=== PATIENT | female | born 1965 | race Hispanic/Latino ===

== ENCOUNTER 2016-11-20 14:37 | Inpatient (IN) | payer MEDICARE, MEDICAID, OTHER ==
[2016-11-20 14:52] VITALS: BMI 22.1
--- NOTE | 2016-11-20 15:29 | ED PDOC ---
Arrival/HPI - General Chief Complaint: Psychiatric Evaluation Time Seen by Provider: 11/20/16 15:03 Historian: Patient - History of Present Illness Narrative History of Present Illness (Text): 11/20/16 15:22 51 yo F with past medical history of hypertension, papillary carcinoma of the thyroid, status post thyroidectomy one year ago, presents for psychiatric evaluation after seeing her psychiatrist today Dr. Amin, who recommends the patient come to the emergency room for inpatient psychiatric treatment. Patient reports several month history of feelings of anxiety and depression ever since she completed radioactive treatment for her thyroid cancer and menopause. Reports difficulty eating, sleeping and dealing with daily everyday stress. Patient states that her psychiatrist has recently changed her medication Zoloft a few days ago with no improvement of her current symptoms. Other psychiatric symptoms: (-) hallucinations, (-) suicidal ideation, (-) homicidal ideation. Otherwise: (-) trauma, (-) fever, (-) headache, (-) dyspnea, (-) vomiting, (-) substance abuse, (-) patient intent of initiating a suicide attempt, (-) plan. JOSUÉ Oakes Past Medical History - Provider Review Nursing Documentation Reviewed: Yes - Infectious Disease Hx of Infectious Diseases: None - Cardiac Hx Hypertension: Yes - Pulmonary Hx Tuberculosis: No - Neurological HX Cerebrovascular Accident: No Hx Seizures: No - HEENT Hx HEENT Disorder: No - Renal Hx Renal Disorder: No - Endocrine/Metabolic Hx Hypothyroidism: Yes (s/p thyroidectomy) - Hematological/Oncological Hx Cancer: No - Integumentary Hx Dermatological Disorder: No - Musculoskeletal/Rheumatological Hx Musculoskeletal Disorders: No - Gastrointestinal Hx Gastrointestinal Disorders: Yes - Genitourinary/Gynecological Hx Sexually Transmitted Diseases: No - Psychiatric Hx Anxiety: Yes Hx Depression: Yes Hx Emotional Abuse: No Hx Physical Abuse: No Hx Substance Use: No - Surgical History Hx Appendectomy: Yes Hx Thyroidectomy: Yes - Anesthesia Hx Anesthesia: Yes Hx Anesthesia Reactions: No Hx Malignant Hyperthermia: No - Suicidal Assessment Feels Threatened In Home Enviroment: No Family/Social History - Physician Review Nursing Documentation Reviewed: Yes Family/Social History: Neoplasm/Cancer Smoking Status: Never Smoked Hx Alcohol Use: No Hx Substance Use: No Allergies/Home Meds Allergies/Adverse Reactions: Allergies sulfamethoxazole [From Bactrim] Allergy (Verified 04/19/15 16:13) RASH trimethoprim [From Bactrim] Allergy (Verified 04/19/15 16:13) RASH Home Medications: Home Meds Medication Instructions Recorded Confirmed Dolutegravir Sodium [Tivicay] 50 mg PO DAILY 06/18/15 11/20/16 Metoprolol Succinate 25 mg PO DAILY 06/18/15 11/20/16 Emtricitabine/Tenofov Alafenam 1 each PO DAILY 06/09/16 11/20/16 [Descovy 200-25 mg Tablet] Levothyroxine [Synthroid] 137 mcg PO DAILY 06/09/16 11/20/16 Methylphenidate [Ritalin] 1 tab PO DAILY 11/20/16 11/20/16 Sertraline [Zoloft] 1 tab PO DAILY 11/20/16 11/20/16 Review of Systems - Review of Systems Constitutional: Normal. absent: Fatigue, Weight Change, Fevers Respiratory: Normal. absent: SOB, Cough, Sputum Cardiovascular: Normal. absent: Chest Pain, Palpitations, Edema Gastrointestinal: Normal. absent: Abdominal Pain, Vomiting, Appetite Changes Musculoskeletal: Normal. absent: Arthralgias, Back Pain, Neck Pain Skin: Normal. absent: Rash, Pruritis, Skin Lesions Neurological: Normal, Headache. absent: Dizziness, Focal Weakness Psychiatric: Normal, Anxiety, Depression. absent: Suicidal Ideation Physical Exam - Physical Exam Narrative Physical Exam (Text): 11/20/16 15:32 GENERAL APPEARANCE: Patient is awake, alert, oriented x 3, in no acute distress. SKIN: Warm, dry; (-) cyanosis. HEAD: (-) scalp swelling, (-) scalp tenderness. EYES: (-) conjunctival pallor, (-) scleral icterus, (-) nystagmus. ENMT: Mucous membranes moist. Airway patent: (-) stridor. NECK: (-) tenderness, (-) stiffness, (-) lymphadenopathy. CHEST AND RESPIRATORY: (-) rales, (-) rhonchi, (-) wheezes; breath sounds equal. ABDOMEN: Soft, (-) distention, (-) tenderness, (-) guarding. NEURO AND PSYCH: Mental status as above. Affect: flat. Memory: Intact. Mood: depressed. spanish moss picker: Pupils equal and reactive; EOMI; (-) facial asymmetry; tongue and uvula midline. Strength and DTRs symmetric. Vital Signs Pulse Resp BP Pulse Ox 11/20/16 18:00 72 18 120/80 97 Medical Decision Making ED Course and Treatment: 11/20/16 15:30 51 yo F with past medical history of hypertension, papillary carcinoma of the thyroid, status post thyroidectomy one year ago, presents for psychiatric evaluation, she reports several month history of feelings of anxiety and depression ever since she completed radioactive treatment for her thyroid cancer and menopause. Patient was referred by Dr. Amin, for inpatient psychiatric treatment. Plan: -- Labs -- Etoh / drug screen -- Urinalysis -- EKG -- CXR -- Reassess and disposition -- PES evaluation Case d/w Dr. Santos, request that the patient be assessed by PES, and recommends to have the patient offered voluntary inpatient psych treatment. Patient being evaluated by PES. After PES evaluation, patient agrees to voluntary inpatient psych admission. EKG: NSR at 87 bpm, (-) acute ST changes, as read by NICK. CXR : NAD, as read by PA Labs reviewed, patient noted to have a UTI, will treat with macrobid. Patient is medically cleared for inpatient psychiatric treatment. - Lab Interpretations I have reviewed the lab results: Yes (Urinalysis : +UTI. Macrobid 100 mg PO ordered.) - RAD Interpretation Radiology Orders: 11/20/16 15:35 CHEST PORTABLE [RAD] Stat - Medication Orders Current Medication Orders: Nitrofurantoin Macrocrystals (Macrobid) 100 mg PO Q12 BRYANNA Stop: 11/21/16 23:59 - PA / ACCESSIBILITY LIFT TECHNICIAN / Resident Statement MD/DO has reviewed & agrees with the documentation as recorded. Disposition/Present on Arrival - Present on Arrival Any Indicators Present on Arrival: No History of DVT/PE: No History of Uncontrolled Diabetes: No Urinary Catheter: No History of Decub. Ulcer: No History Surgical Site Infection Following: None - Disposition Have Diagnosis and Disposition been Completed?: Yes Diagnosis: Depression, Anxiety, UTI (urinary tract infection) Disposition: HOSPITALIZED Disposition Time: 16:00 Patient Plan: Admission Patient Problems: Current Active Problems Problem Status Onset Anxiety Acute Depression Acute UTI (urinary tract infection) Acute Condition: STABLE
[2016-11-20 16:43] LABS: BASO # 0.01 K/mm3 (0.0-2.0); BASO % 0.1 % (0.0-3.0); EOS % 0.1 % (1.5-5.0); GRAN # 4.52 (1.4-6.5); GRAN % 63.3 % (50.0-68.0); HEMATOCRIT 34.4 % (36.0-48.0); LYMPH # 1.9 (1.2-3.4); LYMPH % 26.8 % (22.0-35.0); MEAN CORPUSCULAR HEMOGLOBIN 32.8 pg (25.0-35.0); MONO # 0.7 (0.1-0.6); MONO % 9.7 % (1.0-6.0); PH,URINE 7.5 (4.7-8.0); RED CELL DISTRIBUTION WIDTH 13.7 % (11.5-14.5); URINE BILIRUBIN NEGATIVE (NEGATIVE); URINE BLOOD TRACE-INTACT (NEGATIVE); URINE GLUCOSE (UA) NEGATIVE (NEGATIVE); URINE KETONE NEGATIVE (NEGATIVE); URINE LEUKOCYTE ESTERASE LARGE Leu/uL (NEGATIVE); URINE PROTEIN 30 mg/dL (<30 mg/dL); URINE UROBILINOGEN 0.2 E.U./dL (<1 E.U./dL); WHITE BLOOD COUNT 7.1 10^3/ul (4.5-11.0)
[2016-11-20 16:46] LABS: URINE COLOR YELLOW (YELLOW)
[2016-11-20 16:47] LABS: URINE APPEARANCE CLEAR (CLEAR)
[2016-11-20 16:50] LABS: URINE WBC 25 - 30 /hpf (0-6)
[2016-11-20 16:51] LABS: URINE BACTERIA MANY (NEG)
[2016-11-20 16:52] LABS: URINE AMORPHOUS SEDIMENT FEW
[2016-11-20 17:14] LABS: ALB/GLOB RATIO 1.7 (1.1-1.8); ALKALINE PHOSPHATASE 63 U/L (38-126); ALT/SGPT 28 U/L (7-56); AST/SGOT 31 U/L (14-36); BILIRUBIN,TOTAL 0.8 mg/dL (0.2-1.3); BLOOD UREA NITROGEN 18 mg/dL (7-21); CALCIUM 9.6 mg/dL (8.4-10.5); CARBON DIOXIDE 28 mmol/L (21-33); CHLORIDE 101 mmol/L (98-107); GFR AFRICAN-AMERICAN > 60; GLUCOSE,RANDOM 90 mg/dL (70-110); POTASSIUM 3.5 mmol/L (3.6-5.0); SODIUM 139 mmol/L (132-148); TOTAL PROTEIN 6.8 g/dL (5.8-8.3)
[2016-11-20] MEDS ORDERED: Alum-Mag Hydrox-Simethicone Susp (30 mL) PO PRN (21:09)
[2016-11-20] MEDS ORDERED: Magnesium Hydroxide Susp 30 ml UD PO PRN (21:09)
[2016-11-20] MEDS ORDERED: Emtricitabine-Tenofovir 200 mg-300 mg Tab PO SCH (22:00)
--- NOTE | 2016-11-21 00:18 | PCM.BM ---
<Umberto Parra - Last Filed: 11/21/16 00:15> Treatment Plan Problems - Problems identified on initial assessmt Anxiety Date Initiated: 11/21/16 Time Initiated: 00:16 Assessment reference: NA Status: Active Hopelessness/Helplessness Date Initiated: 11/21/16 Time Initiated: 00:16 Assessment reference: NA Status: Active Feelings of Worthlessness Date Initiated: 11/21/16 Time Initiated: 00:17 Assessment reference: NA Status: Active Social Isolation Date Initiated: 11/21/16 Time Initiated: 00:17 Assessment reference: NA Status: Active Altered Sleep Patterns Date Initiated: 11/21/16 Time Initiated: 00:17 Assessment reference: NA Status: Active Treatment assets and liabiliti Patient Assests: cooperative, ADL independent, cognitively intact Patient Liabilities: live alone, poor support system, medical problems - Milieu Protocol Maintain good personal hygiene: daily Encourage regular showers, daily Remind patient to perform daily oral care, daily Assist patient to perform ADL's Maintain personal safety: every shift Educate patient to report safety concerns to staff, every shift Monitor environment for contraband/sharps Medication safety: Monitor for expected outcome, potential side effects: every shift, Assess barriers to learning: every shift, Assess readiness for medication education: every shift Discharge/Continuing Care - Education Needs Education Needs: Patient Medication, Patient Diagnosis/Disease Process, Patient Coping Skills, Patient Community resources, Patient Nutrition, Patient Health Practices/Safety, Patient Aftercare Safety Plan - Discharge Discharge Criteria: Tolerates medication w/o severe side effects, Free of Suicidal thoughts, Free of paranoid thoughts, Normal sleep pattern, Ability to care for self <Lew Pritchard - Last Filed: 11/23/16 11:13> Family Contact - Goals for Treatment Patient goals for treatment: "I want to stablize on medications" Discharge/Continuing Care - Discharge Discharge to:: Home <Hannah Lara - Last Filed: 11/23/16 16:19>
[2016-11-21 07:34] LABS: BASO # 0.02 K/mm3 (0.0-2.0); BASO % 0.4 % (0.0-3.0); EOS % 0.7 % (1.5-5.0); GRAN # 2.33 (1.4-6.5); GRAN % 51.5 % (50.0-68.0); HEMATOCRIT 34.2 % (36.0-48.0); LYMPH # 1.6 (1.2-3.4); LYMPH % 34.2 % (22.0-35.0); MEAN CORPUSCULAR HEMOGLOBIN 32.4 pg (25.0-35.0); MEAN CORPUSCULAR HGB CONC 35.7 g/dl (31.0-37.0); MEAN PLATELET VOLUME 9.1 fl (7.0-11.0); MONO # 0.6 (0.1-0.6); MONO % 13.2 % (1.0-6.0); RED CELL DISTRIBUTION WIDTH 13.8 % (11.5-14.5); WHITE BLOOD COUNT 4.5 10^3/ul (4.5-11.0)
[2016-11-21 07:58] LABS: ALB/GLOB RATIO 1.8 (1.1-1.8); ALKALINE PHOSPHATASE 63 U/L (38-126); ALT/SGPT 35 U/L (7-56); AST/SGOT 31 U/L (14-36); BILIRUBIN,TOTAL 1.3 mg/dL (0.2-1.3); BLOOD UREA NITROGEN 15 mg/dL (7-21); CALCIUM 9.4 mg/dL (8.4-10.5); CARBON DIOXIDE 27 mmol/L (21-33); CHLORIDE 102 mmol/L (98-107); CHOLESTEROL 157 mg/dL (130-200); GFR AFRICAN-AMERICAN > 60; GLUCOSE,FASTING 104 mg/dL (65-110); GLUCOSE,RANDOM 104 mg/dL (70-110); POTASSIUM 3.4 mmol/L (3.6-5.0); SODIUM 140 mmol/L (132-148); TOTAL PROTEIN 6.9 g/dL (5.8-8.3)
[2016-11-21 08:09] LABS: FREE T4 1.67 ng/dL (0.78-2.19)
[2016-11-21 08:23] LABS: THYROID STIMULATING HORMONE 3.25 mIU/mL (0.46-4.68)
--- NOTE | 2016-11-21 08:55 | PCM.PSYCH ---
Initial Psychiatric Evaluation - Initial Psychiatric Evaluation Type of Admission: Voluntary Legal Status: Capacity History of Present Illness and Precipitating Events: Patient is a single 51 yo white female with psychiatric history of depression and anxiety, no prior psychiatric admissions, no SA, in outpatient treatment with Dr. Amin since June 2016, compliant with prescribed Zoloft and Ritalin who was referred for psychiatric admission by Dr. Amin after she presented for office visit today reporting continued depression and hopelessness s/p medication switch from remeron and rexulti to zoloft and ritalin a week ago. Patient has a long history of depression however symptoms worsened after completing treatment for thyroid cancer. Patient had thyroidectomy in August 2015 and radioactive iodine treatment in November 2015. Since then she has noticed increase in anhedonia, low energy, poor motivation, insomnia and hopelessness. Presently she denies any suicidal thoughts and has been tolerating medications though noted that she takes Zoloft at night not during the day. She has been in control and there were no behavioral issues overnight. PSYCHIATRIC HISTORY No prior psychiatric admissions. No history of SA Outpatient tx with psychiatrist Dr. Amin since June 2016. Was prescribed remeron and rexulti which were switched to Ritalin and Zoloft a week ago. SOCIAL HISTORY Born and raised in [place]. She is not and lives by herself. She has a 29-year-old son. Unemployed. Denies tobacco/ETOH/substance abuse. Current Medications: Active Medications Generic Name Dose Route Start Last Admin Trade Name Freq PRN Reason Stop Dose Admin Acetaminophen 650 mg 11/20/16 21:09 Tylenol 325mg Tab PO Q4 PRN Pain, Mild (1-3) Al Hydrox/Mg Hydrox/Simethicone 30 ml 11/20/16 21:09 Maalox Plus 30 Ml PO DAILY PRN Upset Stomach Levothyroxine Sodium 25 mcg/ 137 mcg 11/21/16 06:00 Levothyroxine Sodium 112 mcg PO 0600 BRYANNA Lorazepam 0.5 mg 11/20/16 21:24 Ativan PO TID PRN Anxiety Protocol Magnesium Hydroxide 30 ml 11/20/16 21:09 Milk Of Magnesia PO DAILY PRN Constipation Metoprolol Tartrate 25 mg 11/21/16 08:00 Lopressor PO BID BRYANNA Nitrofurantoin Macrocrystals 100 mg 11/20/16 19:21 11/20/16 22:02 Macrobid PO 11/21/16 23:59 100 mg Q12 BRYANNA Administration Sertraline HCl 75 mg 11/21/16 08:00 Zoloft PO DAILY BRYANNA Trazodone HCl 50 mg 11/20/16 22:00 11/20/16 22:02 Desyrel PO 50 mg HS BRYANNA Administration Zaleplon 5 mg 11/20/16 21:24 11/20/16 23:34 Sonata PO 5 mg HS PRN Administration Insomnia Past Psychiatric History - Past Psychiatric History Pertinent Medical Hx (Current Medical&Sleep Prob, Allergies): Allergies Allergy/AdvReac Type Severity Reaction Status Date / Time sulfamethoxazole Allergy RASH Verified 11/20/16 20:57 [From Bactrim] trimethoprim [From Bactrim] Allergy RASH Verified 11/20/16 20:57 Dolutegravir Sodium [Tivicay] 50 mg PO DAILY 06/18/15 Metoprolol Succinate 25 mg PO DAILY 06/18/15 Emtricitabine/Tenofov Alafenam [Descovy 200-25 mg Tablet] 1 each PO DAILY Levothyroxine [Synthroid] 137 mcg PO DAILY 06/09/16 Methylphenidate [Ritalin] 1 tab PO DAILY 11/20/16 Sertraline [Zoloft] 1 tab PO DAILY 11/20/16 Mental Status Examination - Personal Presentation Personal Presentation: Looks stated age - Affect Affect: Constricted - Motor Activity Motor Activity: Calm - Reliability in Providing Information Reliability in Providing Information: Fair - Speech Speech: Organized, Coherent - Mood Mood: Depressed, Anxious - Formal Thought Process Formal Thought Process: No Impairment - Obsessions/Compulsions Obsessions: No Compulsions: No - Cognitive Functions Orientation: Person, Place, Situation Sensorium: Alert Attention/Concentration: Attentive Estimate of Intelligence: Average - Risk Risk: Diminished functioning DSM 5 DX - DSM 5 DSM 5 Diagnosis: Major Depression, Severe KRUPA r/o contribution of depression secondary to [facility] - Recommended/Plan of Treatment Treatment Recommendations and Plan of Treatment: * Group, milieu and supportive tx * zoloft 75 mg po hs for depression and anxiety * Trazodone 50 mg HS for depression and off-label for insomnia * Sonata 5 mg HS for insomnia * Ativan 0.5 mg po TID for anxiety * Awaiting medical consult * Vital signs reviewed and noted below: Selected Entries 11/20/16 11/20/16 18:00 22:02 Pulse Rate 72 95 H Respiratory 18 Rate Blood Pressure 120/80 146/92 H O2 Sat by Pulse 97 Oximetry ER LABS AND STUDIES EKG: NSR at 87 bpm, (-) acute ST changes, as read by NICK. CXR : NAD, as read by NICK 11/20/16 16:38 11/20/16 16:38 Lab Results 11/20/16 16:38: Alcohol, Quantitative < 10 11/20/16 16:38: Urine Opiates Screen Negative, Urine Methadone Screen Negative, Ur Barbiturates Screen Negative, Ur Phencyclidine Scrn Negative, Ur Amphetamines Screen Negative, U Benzodiazepines Scrn Negative, U Oth Cocaine Metabols Negative, U Cannabinoids Screen Negative 11/20/16 16:38: Sodium 139, Potassium 3.5 L, Chloride 101, Carbon Dioxide 28, Anion Gap 14, BUN 18, Creatinine 1.0, Est GFR ( Amer) > 60, Est GFR (Non- Af Amer) 58, Random Glucose 90, Calcium 9.6, Total Bilirubin 0.8, AST 31, ALT 28 , Alkaline Phosphatase 63, Total Protein 6.8, Albumin 4.3, Globulin 2.5, Albumin /Globulin Ratio 1.7 11/20/16 16:38: Urine Color Yellow, Urine Appearance Clear, Urine pH 7.5, Ur Specific [place] 1.015, Urine Protein 30 H, Urine Glucose (UA) Negative, Urine Ketones Negative, Urine Blood Trace-intact H, Urine Nitrate Negative, Urine Bilirubin Negative, Urine Urobilinogen 0.2, Ur Leukocyte Esterase Large H, Urine RBC 2 - 5, Urine WBC 25 - 30, Ur Epithelial Cells 6 - 8, Amorphous Sediment Few, Urine Bacteria Many, Urine Other Uyeast 11/20/16 16:38: WBC 7.1, RBC 3.78, Hgb 12.4, Hct 34.4 L, MCV 91.0, MCH 32.8, MCHC 36.0, RDW 13.7, Plt Count 195, MPV 9.0, Gran % 63.3, Lymph % (Auto) 26.8, [place] % (Auto) 9.7 H, Eos % (Auto) 0.1 L, Baso % (Auto) 0.1, Gran # 4.52, Lymph # 1.9, [place] # 0.7 H, Eos # 0.0, Baso # 0.01 FLOOR LABS Laboratory Results - last 24 hr 11/21/16 11/21/16 11/21/16 07:20 07:20 07:20 WBC 4.5 D RBC 3.76 Hgb 12.2 Hct 34.2 L MCV 91.0 MCH 32.4 MCHC 35.7 RDW 13.8 Plt Count 191 MPV 9.1 Gran % 51.5 Lymph % (Auto) 34.2 [place] % (Auto) 13.2 H Eos % (Auto) 0.7 L Baso % (Auto) 0.4 Gran # 2.33 Lymph # 1.6 [place] # 0.6 Eos # 0.0 Baso # 0.02 Sodium 140 Potassium 3.4 L Chloride 102 Carbon Dioxide 27 Anion Gap 14 BUN 15 Creatinine 1.0 Est GFR ( Amer) > 60 Est GFR (Non-Af Amer) 58 Random Glucose 104 Fasting Glucose 104 Calcium 9.4 Total Bilirubin 1.3 AST 31 ALT 35 Alkaline Phosphatase 63 Total Protein 6.9 Albumin 4.4 Globulin 2.5 Albumin/Globulin Ratio 1.8 Triglycerides 75 Cholesterol 157 LDL Cholesterol Direct 80 HDL Cholesterol 55 Free T4 TSH 3rd Generation RPR Nonreactive 11/21/16 07:20 WBC RBC Hgb Hct MCV MCH MCHC RDW Plt Count MPV Gran % Lymph % (Auto) [place] % (Auto) Eos % (Auto) Baso % (Auto) Gran # Lymph # [place] # Eos # Baso # Sodium Potassium Chloride Carbon Dioxide Anion Gap BUN Creatinine Est GFR ( Amer) Est GFR (Non-Af Amer) Random Glucose Fasting Glucose Calcium Total Bilirubin AST ALT Alkaline Phosphatase Total Protein Albumin Globulin Albumin/Globulin Ratio Triglycerides Cholesterol LDL Cholesterol Direct HDL Cholesterol Free T4 1.67 TSH 3rd Generation 3.25 RPR - Smoking Cessation Smoking Cessation Initiated: No Reason for not providing: Patient denies tobacco use
[2016-11-21] MEDS ORDERED: TIVICAY 50 MG PO ONE (16:15)
--- NOTE | 2016-11-21 19:34 | CARD ---
APPROVED REPORT EKG Measurement Heart [id number] <Conclusion> Normal sinus rhythm Possible Left atrial enlargement Incomplete right bundle branch block Cannot rule out Inferior infarct, age undetermined T wave abnormality, consider anterior ischemia Abnormal ECG
--- NOTE | 2016-11-22 05:15 | CON ---
DATE: CHIEF COMPLAINT: Hypertension, HIV positive. HISTORY OF PRESENT ILLNESS: Ms. Mulligan is 51 years old female with past medical history of hypertension, papillary carcinoma of the thyroid, status post thyroidectomy one year ago, came to the psychiatric evaluation after seeing her psychiatrist on the day of admission, Dr. Montano, who recommended the patient come to emergency room for inpatient psychiatric treatment. Actually, according to the patient several months ago, she got radiation therapy for her thyroid cancer and has menopause, started feeling anxious, depressed and having trouble dealing everyday stresses. She went to see her psychiatrist, Dr. Montano, he put her on Zoloft, but Zoloft was not helping. Then, after failing outpatient treatment, Dr. Montano sent the patient to [facility] for inpatient treatment. The patient do not have any suicidal or homicidal ideation and no hallucination or substance abuse. PAST MEDICAL HISTORY: Hypertension, papillary carcinoma of the thyroid status post thyroidectomy, status post radiation therapy, HIV positive. As per the patient, GERD, dyspepsia, anxiety, depression, appendectomy and thyroidectomy. FAMILY HISTORY: History of neoplasm/cancer. Smoking; never smoked. No drug, no ethanol. ALLERGIES: THE PATIENT IS ALLERGIC WITH BACTRIM. HOME MEDICATIONS: Tivicay, metoprolol, Descovy, levothyroxine, Ritalin and Zoloft. REVIEW OF SYSTEMS: The patient is seen and examined on the bedside in the psychiatric department, looks anxious, worrying about her HIV medication because hospital was not carrying. Length of time discussion done with the patient and told her that she can bring home medication or we will call ID to get substitution of the HIV medication. No nausea, vomiting, or diarrhea. No hematuria or hematochezia, no swelling of the leg, no chest pain, no palpitation, no headache, no dizziness. PHYSICAL EXAMINATION VITAL SIGNS: Temperature 98.6, pulse 78, blood pressure 144/88 and respiratory rate 18. HEENT: Head is normocephalic and atraumatic. Eyes, PERRLA. Extraocular muscles intact. Conjunctivae clear. Nose patent. Mucous membranes moist. NECK: Supple. No carotid bruits, JVD, or thyromegaly. CHEST: Bilateral symmetrical. HEART: S1 and S2 positive. LUNGS: Clear to auscultation. ABDOMEN: Soft. Bowel sounds are present. No organomegaly. EXTREMITIES: No edema. No cyanosis. NEUROLOGIC: The patient is awake and alert. Moving all 4 extremities. No focal deficits. LABORATORY DATA: White blood cell is 4.5, hemoglobin 12.2, hematocrit 34.2 and platelets 191. Sodium 140, potassium 3.4, BUN 15 and creatinine 1. TSH 3.25. ASSESSMENT AND PLAN: Ms. Ese Luo is 51 years old lady with hypokalemia we will replace, proteinuria, hematuria, urinary tract infection. Drug screening negative. Serology RPR nonreactive, history of hypertension, human immunodeficiency virus positive, thyroid cancer status post thyroidectomy and radiation therapy, has depression and anxiety, admitted in [facility]. No prior psychiatric admissions. Failed outpatient treatment by Dr. Montano. Ordered the patient's human immunodeficiency virus medications. Gastrointestinal and deep venous thrombosis prophylaxis. We will call infectious disease consult to justify above dictated medications and urinary tract infection. Repeat labs. We will follow up. Maryuri Oliveira MD
[2016-11-22 06:56] VITALS: O2SAT 98
--- NOTE | 2016-11-22 09:04 | PCM.PYCHPN ---
Psychiatric Progress Note - Psychiatric Progress Note Patient seen today, length of contact: 25 min Patient Chief Complaint: "depressed" Problems Identified/Issues Discussed: History of Present Illness and Precipitating Events: Patient is a single 51 yo white HIV+ female with psychiatric history of depression and anxiety, no prior psychiatric admissions, no SA, in outpatient treatment with Dr. Amin since June 2016, compliant with prescribed Zoloft and Ritalin who was referred for psychiatric admission by Dr. Amin after she presented for office visit today reporting continued depression and hopelessness s/p medication switch from remeron and rexulti to zoloft and ritalin a week ago. Patient has a long history of depression however symptoms worsened after completing treatment for thyroid cancer. Patient had thyroidectomy in August 2015 and radioactive iodine treatment in November 2015. Since then she has noticed increase in anhedonia, low energy, poor motivation, insomnia and hopelessness. Presently she denies any suicidal thoughts and has been tolerating medications though noted that she takes Zoloft at night not during the day. She has been in control and there were no behavioral issues overnight. PSYCHIATRIC HISTORY No prior psychiatric admissions. No history of SA Outpatient tx with psychiatrist Dr. Amin since June 2016. Was prescribed remeron and rexulti which were switched to Ritalin and Zoloft a week ago. SOCIAL HISTORY Born and raised in [place]. She is not and lives by herself. She has a 29-year-old son. Unemployed. Denies tobacco/ETOH/substance abuse. ~~~~~~~~~~~~~~~~~~~~~ I reviewed recent and met with patient at bedside. Patient remains well- oriented to month, year, location and circumstances. She is cooperative with questioning. Patient reports continued depression and her affect is withdrawn. Her thought process remains clear and connected with relevant responses. She denies any perceptual disturbance. Patient is tolerating her medications and denies any new discomfort or pain except for some indigestion--likely associated with Zoloft. Staff notes indicate that patient appears depressed and anxious. Patient reported that she didn't feel comfortable on the unit due to profanity used by other patients. There were no behavioral issues overnight. Diagnostic Results: Major Depression, Severe KRUPA r/o contribution of depression secondary to [facility] Medication Change: No Medical Record Reviewed: Yes Mental Status Examination - Cognitive Function Orientation: Person, Place, Situation Attention: WNL Concentration: WNL - Mood Mood: Depressed, Anxious - Affect Affect: Constricted - Speech Speech: Appropriate - Formal Thought Process Formal Thought Process: No Impairment - Suicidal Ideation Suicidal Ideation: No - Homicidal Ideation Homicidal Ideation: No Goal/Treatment Plan - Goal/Treatment Plan Need for Continued Stay: Remain at risks for inpatient hospitalization Progress Toward Problem(s) and Goals/Treatment Plan: * Group, milieu and supportive tx * Zoloft 75 mg po hs for depression and anxiety * Trazodone 50 mg HS for depression and off-label for insomnia * Sonata 5 mg HS for insomnia * Ativan 0.5 mg po TID for anxiety * Appreciate f/u by Dr. Oliveira on 11/21/16~requesting ID consult * Vital signs reviewed and noted below: Selected Entries 11/21/16 11/21/16 11/21/16 07:09 09:16 16:19 Temperature 98.6 F Pulse Rate 93 H 93 H 88 Respiratory 18 Rate Blood Pressure 122/62 122/62 144/78 11/21/16 16:27 Temperature Pulse Rate 78 Respiratory Rate Blood Pressure 144/88 ER LABS AND STUDIES EKG: NSR at 87 bpm, (-) acute ST changes, as read by NICK. CXR : NAD, as read by NICK 11/20/16 16:38 11/20/16 16:38 Lab Results 11/20/16 16:38: Alcohol, Quantitative < 10 11/20/16 16:38: Urine Opiates Screen Negative, Urine Methadone Screen Negative, Ur Barbiturates Screen Negative, Ur Phencyclidine Scrn Negative, Ur Amphetamines Screen Negative, U Benzodiazepines Scrn Negative, U Oth Cocaine Metabols Negative, U Cannabinoids Screen Negative 11/20/16 16:38: Sodium 139, Potassium 3.5 L, Chloride 101, Carbon Dioxide 28, Anion Gap 14, BUN 18, Creatinine 1.0, Est GFR ( Amer) > 60, Est GFR (Non- Af Amer) 58, Random Glucose 90, Calcium 9.6, Total Bilirubin 0.8, AST 31, ALT 28 , Alkaline Phosphatase 63, Total Protein 6.8, Albumin 4.3, Globulin 2.5, Albumin /Globulin Ratio 1.7 11/20/16 16:38: Urine Color Yellow, Urine Appearance Clear, Urine pH 7.5, Ur Specific [place] 1.015, Urine Protein 30 H, Urine Glucose (UA) Negative, Urine Ketones Negative, Urine Blood Trace-intact H, Urine Nitrate Negative, Urine Bilirubin Negative, Urine Urobilinogen 0.2, Ur Leukocyte Esterase Large H, Urine RBC 2 - 5, Urine WBC 25 - 30, Ur Epithelial Cells 6 - 8, Amorphous Sediment Few, Urine Bacteria Many, Urine Other Uyeast 11/20/16 16:38: WBC 7.1, RBC 3.78, Hgb 12.4, Hct 34.4 L, MCV 91.0, MCH 32.8, MCHC 36.0, RDW 13.7, Plt Count 195, MPV 9.0, Gran % 63.3, Lymph % (Auto) 26.8, [place] % (Auto) 9.7 H, Eos % (Auto) 0.1 L, Baso % (Auto) 0.1, Gran # 4.52, Lymph # 1.9, Zapata # 0.7 H, Eos # 0.0, Baso # 0.01 FLOOR LABS Laboratory Results - last 24 hr 11/21/16 11/21/16 11/21/16 07:20 07:20 07:20 WBC 4.5 D RBC 3.76 Hgb 12.2 Hct 34.2 L MCV 91.0 MCH 32.4 MCHC 35.7 RDW 13.8 Plt Count 191 MPV 9.1 Gran % 51.5 Lymph % (Auto) 34.2 Zapata % (Auto) 13.2 H Eos % (Auto) 0.7 L Baso % (Auto) 0.4 Gran # 2.33 Lymph # 1.6 Zapata # 0.6 Eos # 0.0 Baso # 0.02 Sodium 140 Potassium 3.4 L Chloride 102 Carbon Dioxide 27 Anion Gap 14 BUN 15 Creatinine 1.0 Est GFR ( Amer) > 60 Est GFR (Non-Af Amer) 58 Random Glucose 104 Fasting Glucose 104 Calcium 9.4 Total Bilirubin 1.3 AST 31 ALT 35 Alkaline Phosphatase 63 Total Protein 6.9 Albumin 4.4 Globulin 2.5 Albumin/Globulin Ratio 1.8 Triglycerides 75 Cholesterol 157 LDL Cholesterol Direct 80 HDL Cholesterol 55 Free T4 TSH 3rd Generation RPR Nonreactive 11/21/16 07:20 WBC RBC Hgb Hct MCV MCH MCHC RDW Plt Count MPV Gran % Lymph % (Auto) Zapata % (Auto) Eos % (Auto) Baso % (Auto) Gran # Lymph # Zapata # Eos # Baso # Sodium Potassium Chloride Carbon Dioxide Anion Gap BUN Creatinine Est GFR ( Amer) Est GFR (Non-Af Amer) Random Glucose Fasting Glucose Calcium Total Bilirubin AST ALT Alkaline Phosphatase Total Protein Albumin Globulin Albumin/Globulin Ratio Triglycerides Cholesterol LDL Cholesterol Direct HDL Cholesterol Free T4 1.67 TSH 3rd Generation 3.25 RPR - Smoking Cessation Smoking Cessation Initiated: No Reason for not providing: Patient doesn't smoke tobacco
[2016-11-22] MEDS: Potassium Chloride 10 mEq ER Tab PO SCH (09:31)
[2016-11-22] MEDS: TIVICAY 50 MG PO SCH (13:01)
--- NOTE | 2016-11-22 20:36 | CON ---
DATE: 11/22/2016 LOCATION: The patient is seen in the psychiatric floor. CHIEF COMPLAINT: Positive HIV times many years. HISTORY OF PRESENT ILLNESS: This is a 51-year-old female with past medical history of HIV times many years on Descovy and Tivicay followed by Dr. Fulton in [place] with viral load undetectable and T-cell in the 800 range, who is admitted to the psychiatric floor because of her depression and the patient states she has a history of thyroid disease versus hypothyroidism, has had thyroidectomy, and the patient also with appendectomy and colonoscopy in the past and history of hypertension, who is allergic to sulfamethizole and trimethoprim. She was admitted through emergency room seen by Dr. Justin Fairchild. In the emergency room, states the patient had papillary cancer of the thyroid and admitted for depression. Infectious Disease called for the patient requested for continuation of HIV medications. REVIEW OF SYSTEMS: Reveals no fevers. No chills. No nausea. No vomiting. PAST MEDICAL HISTORY: Significant for hypertension, hypothyroidism, papillary cancer of thyroid, and positive HIV. PAST SURGICAL HISTORY: Significant for thyroidectomy, appendectomy, and colonoscopy. ALLERGIES: THE PATIENT IS ALLERGIC TO SULFAMETHOXAZOLE AND TRIMETHOPRIM. MEDICATIONS: At home include the dolutegravir, which is Tivicay and Descovy, which is emtricitabine and tenofovir, which is TAF and the patient is also on Synthroid, Ritalin, metoprolol, and Zoloft. No recent history. She lives by herself. PHYSICAL EXAMINATION: VITAL SIGNS: Temperature 97, heart rate 93, blood pressure 140/80, and respiratory rate 20. HEENT: Unremarkable. NECK: Supple. LUNGS: Decreased breath sounds. HEART: Normal S1 and S2. ABDOMEN: Soft and nontender. LABORATORY DATA: Reveals a white count of 7.1, hemoglobin of 12, and platelets of 195. Chemistry revealed a BUN of 18 and creatinine of 1.0. Urinalysis reveals 25-30 wbc's with yeast. Toxicology is negative. RPR is negative. Dr. Josephine Marcos's psychiatric progress note is noted. ASSESSMENT: This is a 51-year-old admitted with human immunodeficiency virus, depression, thyroid disease, hypertension, and history of thyroid papillary carcinoma: 1. Depression. 2. Human immunodeficiency virus. RECOMMENDATIONS: Recommend continuation of Tivicay and Descovy. The patient is to return to her HIV school librarian Dr. Fulton in [place] for followup. We would not alter her medications and we would recommend asking pharmacy for drug-drug interaction and review for any new medications are to be introduced. Regarding contract drug interaction, which is Descovy and dolutegravir and new psychiatric medications. Vega Valdes MD
[2016-11-22] MEDS: DESCOVY PO SCH (22:57)
--- NOTE | 2016-11-23 00:09 | PN ---
DATE: SUBJECTIVE: The patient seen and examined at bedside. Looking comfortable. No nausea, vomiting, or diarrhea. No hemoptysis or hematochezia. No swelling noted in the leg. No chest pain. No palpitations. No headache or dizziness. Anxiety is getting better. PHYSICAL EXAMINATION VITAL SIGNS: Temperature 97.9, pulse 90, blood pressure 125/75, and respiratory rate 20. HEENT: Head normocephalic, atraumatic. Eyes: PERRLA. Extraocular muscles intact. Conjunctivae clear. Nose patent. Mucous membranes are moist. NECK: Supple. No carotid bruits. No JVD or thyromegaly. CHEST: Bilaterally symmetrical. HEART: S1 and S2 positive. LUNGS: Clear to auscultation. ABDOMEN: Soft. Bowel sounds present. No organomegaly. EXTREMITIES: No edema. No cyanosis. NEUROLOGIC: The patient is awake and alert. Moving all 4 extremities. No focal deficits. MEDICATIONS: Ativan and tramadol. HOME MEDICATIONS: For HIV + , Lopressor, magnesium oxide, milk of magnesia, Pepcid, Sonata, Tylenol and Zoloft. LABORATORY DATA: We do not have recent labs today, but I reviewed old labs. ASSESSMENT AND PLAN: Ms. Valerio Mulligan is a 51-year- old lady with history of depression and anxiety, has first psych admission, history of human immunodeficiency virus positive, getting medications, hypertension, papillary carcinoma of the thyroid, status post thyroidectomy, status post radiation therapy, gastroesophageal reflux disease, dyspepsia, appendectomy, thyroidectomy. We will continue present treatment. Psych is taking care of psych problem. Urinary tract infection, getting antibiotics. GI and DVT prophylaxis. Repeat labs. We will follow up. Maryuri Oliveira MD I[facility]
[2016-11-23] MEDS ORDERED: Levothyroxine 125 MCG TAB PO SCH (06:00)
[2016-11-23] MEDS: DESCOVY PO SCH ×2 (06:54→22:23)
[2016-11-23] MEDS ORDERED: Levothyroxine 25 MCG TAB ONE (07:03)
[2016-11-23] MEDS: Potassium Chloride 10 mEq ER Tab PO SCH (09:04)
--- NOTE | 2016-11-23 12:39 | CT ---
PROCEDURE: CT scan brain dated 11/23/2016 HISTORY: Rule out CVA. COMPARISON: None available. TECHNIQUE: Axial computed tomography images were obtained through the head/brain without intravenous contrast. Radiation dose: Total exam DLP = 801.68 mGy-cm. This CT exam was performed using one or more of the following dose reduction techniques: Automated exposure control, adjustment of the mA and/or kV according to patient size, and/or use of iterative reconstruction technique. FINDINGS: HEMORRHAGE: No acute parenchymal, subarachnoid or extra-axial BRAIN: Questionable minimal chronic periventricular white matter ischemic changes. VENTRICLES: No obstructive hydrocephalus CALVARIUM: Unremarkable. PARANASAL SINUSES: Unremarkable as visualized. No significant inflammatory changes. MASTOID AIR CELLS: Unremarkable as visualized. No inflammatory changes. OTHER FINDINGS: None. IMPRESSION: No acute intracranial hemorrhage. Questionable minimal periventricular chronic white matter ischemic changes.
[2016-11-23] MEDS: TIVICAY 50 MG PO SCH (13:08)
--- NOTE | 2016-11-23 13:55 | CP.PCM.CON ---
<Dee Aguirre - Last Filed: 11/23/16 14:12> History of Present Illness - History of Present Illness History of Present Illness: Neurology Consult Note for Esther Rodriges PGY2 Reason for consult: Decreased taste This is a 51Y F with PMH HIV, HTN, papillary thyroid cancer s/p thryoidectomy, and radiation, hypothyroidism admitted to psych for anxiety and depression. Patient states she has been having decreased taste since her thyroidectomy last year. She reports that when she eats she has a medicine/metallic taste which causes her to have decreased appetite. She denies having any trouble swallowing , numbness/tingling, headache, dizziness, vision changes, n/v/d, fever or chills. PMH: HIV, HTN, papillary thyroid cancer s/p thryoidectomy/radiation, hypothyroidism PSH: Appendectomy and thyroidectomy (2016) Home meds: As per MAR All: Sulfamethoxazole and trimethoprim SH: Denies alcohol, tobacco or drug use Review of Systems - Review of Systems All systems: reviewed and no additional remarkable complaints except Review of Systems: Decreased sensation of taste Past Patient History - Infectious Disease Hx of Infectious Diseases: None - Past Medical History & Family History Past Medical History?: Yes - Past Social History Smoking Status: Never Smoked Alcohol: None Drugs: Denies Home Situation {Lives}: Alone - CARDIAC Hx Hypertension: Yes - PULMONARY Hx Tuberculosis: No - NEUROLOGICAL HX Cerebrovascular Accident: No Hx Seizures: No - HEENT Hx HEENT Problems: No - RENAL Hx Chronic Kidney Disease: No - ENDOCRINE/METABOLIC Hx Hypothyroidism: Yes (s/p thyroidectomy) - HEMATOLOGICAL/ONCOLOGICAL Hx Cancer: No (Thyroid) - INTEGUMENTARY Hx Dermatological Problems: No - MUSCULOSKELETAL/RHEUMATOLOGICAL Hx Musculoskeletal Disorders: No - GASTROINTESTINAL Hx Gastrointestinal Disorders: Yes - GENITOURINARY/GYNECOLOGICAL Hx Sexually Transmitted Disorders: No - PSYCHIATRIC Hx Anxiety: Yes Hx Depression: Yes Hx Substance Use: No - SURGICAL HISTORY Hx Appendectomy: Yes Hx Thyroidectomy: Yes - ANESTHESIA Hx Anesthesia: Yes Hx Anesthesia Reactions: No Hx Malignant Hyperthermia: No Meds Allergies/Adverse Reactions: Allergies Allergy/AdvReac Type Severity Reaction Status Date / Time sulfamethoxazole Allergy RASH Verified 11/20/16 20:57 [From Bactrim] trimethoprim [From Bactrim] Allergy RASH Verified 11/20/16 20:57 - Medications Medications: Current Medications Acetaminophen (Tylenol 325mg Tab) 650 mg PO Q4 PRN PRN Reason: Pain, Mild (1-3) Al Hydrox/Mg Hydrox/Simethicone (Maalox Plus 30 Ml) 30 ml PO DAILY PRN PRN Reason: Upset Stomach Famotidine (Pepcid) 40 mg PO [facility] Last Admin: 11/22/16 21:58 Dose: 40 mg Home Med (Home Med) 1 unit PO DAILY@1200 [facility] Last Admin: 11/23/16 13:08 Dose: 1 unit Home Med (Home Med) 1 unit PO HS [facility] Last Admin: 11/23/16 06:54 Dose: 1 unit Levothyroxine Sodium 25 mcg/ (Levothyroxine Sodium 112 mcg) 137 mcg PO 0600 [facility] Last Admin: 11/23/16 07:04 Dose: 137 mcg Lorazepam (Ativan) 0.5 mg PO TID PRN; Protocol PRN Reason: Anxiety Last Admin: 11/22/16 22:57 Dose: 0.5 mg Magnesium Hydroxide (Milk Of Magnesia) 30 ml PO DAILY PRN PRN Reason: Constipation Metoprolol Tartrate (Lopressor) 25 mg PO BID [facility] Last Admin: 11/23/16 09:05 Dose: 25 mg Mirtazapine (Remeron) 30 mg PO [facility] Potassium Chloride (Klor-Con 10) 10 meq PO DAILY [facility] Last Admin: 11/23/16 09:04 Dose: 10 meq Venlafaxine HCl (Effexor) 37.5 mg PO DAILY [facility] Last Admin: 11/23/16 13:07 Dose: 37.5 mg Physical Exam - Constitutional Appears: Well - Head Exam Head Exam: ATRAUMATIC, NORMAL INSPECTION, NORMOCEPHALIC - Eye Exam Eye Exam: EOMI, Normal appearance, PERRL Pupil Exam: NORMAL ACCOMODATION, PERRL - ENT Exam ENT Exam: Mucous Membranes Moist, Normal Exam - Neck Exam Neck exam: Positive for: Normal Inspection - Respiratory Exam Respiratory Exam: Clear to Auscultation Bilateral, NORMAL BREATHING PATTERN. absent: Rales, Rhonchi, Wheezes - Cardiovascular Exam Cardiovascular Exam: REGULAR RHYTHM, +S1, +S2. absent: Gallop, Rubs, Systolic Murmur - GI/Abdominal Exam GI & Abdominal Exam: Normal Bowel Sounds, Soft. absent: Guarding, Rebound, Rigid, Tenderness - Extremities Exam Extremities exam: Positive for: normal inspection. Negative for: calf tenderness, pedal edema - Neurological Exam Neurological exam: Alert, CN II-XII Intact, Normal Gait, Oriented x3, Reflexes Normal - Psychiatric Exam Psychiatric exam: Normal Affect, Normal Mood - Skin Skin Exam: Dry, Intact, Normal Color, Warm Results - Vital Signs Recent Vital Signs: Last Vital Signs Temp 984 F H 11/23/16 07:44 Pulse 96 H 11/23/16 09:05 Resp 20 11/23/16 07:44 BP 141/78 11/23/16 09:05 Pulse Ox 98 11/22/16 06:56 - Labs Result Diagrams: 11/21/16 07:20 11/21/16 07:20 Assessment & Plan - Assessment and Plan (Free Text) Assessment: This is a 51Y F with PMH HIV, HTN, papillary thyroid cancer s/p thryoidectomy, and radiation, hypothyroidism admitted to psych for anxiety and depression who is complaining of decreased taste x 1 yr. The decrease sensation of taste can be secondary to anxiety/depression, HIV medications, radiation. Head CT was ordered which was found to be negative. Plan: - Will obtain Vitamin B12 levels - Continue current management Thank you for this consultation. Please re-consult if needed. Case seen, discussed and reviewed with Dr. Antony. Esther Aguirre PGY2 - Date & Time Date: 11/23/16 Time: 14:06 <Mic Antony - Last Filed: 11/23/16 14:18> Meds - Medications Medications: Current Medications Acetaminophen (Tylenol 325mg Tab) 650 mg PO Q4 PRN PRN Reason: Pain, Mild (1-3) Al Hydrox/Mg Hydrox/Simethicone (Maalox Plus 30 Ml) 30 ml PO DAILY PRN PRN Reason: Upset Stomach Famotidine (Pepcid) 40 mg PO HS [facility] Last Admin: 11/22/16 21:58 Dose: 40 mg Home Med (Home Med) 1 unit PO DAILY@1200 [facility] Last Admin: 11/23/16 13:08 Dose: 1 unit Home Med (Home Med) 1 unit PO HS [facility] Last Admin: 11/23/16 06:54 Dose: 1 unit Levothyroxine Sodium 25 mcg/ (Levothyroxine Sodium 112 mcg) 137 mcg PO 0600 [facility] Last Admin: 11/23/16 07:04 Dose: 137 mcg Lorazepam (Ativan) 0.5 mg PO TID PRN; Protocol PRN Reason: Anxiety Last Admin: 11/22/16 22:57 Dose: 0.5 mg Magnesium Hydroxide (Milk Of Magnesia) 30 ml PO DAILY PRN PRN Reason: Constipation Metoprolol Tartrate (Lopressor) 25 mg PO BID [facility] Last Admin: 11/23/16 09:05 Dose: 25 mg Mirtazapine (Remeron) 30 mg PO [facility] Potassium Chloride (Klor-Con 10) 10 meq PO DAILY [facility] Last Admin: 11/23/16 09:04 Dose: 10 meq Venlafaxine HCl (Effexor) 37.5 mg PO DAILY [facility] Last Admin: 11/23/16 13:07 Dose: 37.5 mg Results - Vital Signs Recent Vital Signs: Last Vital Signs Temp 984 F H 11/23/16 07:44 Pulse 96 H 11/23/16 09:05 Resp 20 11/23/16 07:44 BP 141/78 11/23/16 09:05 Pulse Ox 98 11/22/16 06:56 - Labs Result Diagrams: 11/21/16 07:20 11/21/16 07:20 Attending/Attestation - Attestation I have personally seen and examined this patient.: Yes I have fully participated in the care of the patient.: Yes I have reviewed all pertinent clinical information: Yes
--- NOTE | 2016-11-23 16:23 | PCM.PYCHPN ---
Psychiatric Progress Note - Psychiatric Progress Note Patient seen today, length of contact: 30min Patient Chief Complaint: "I am feeling very depressed and anxious" Medical Problems: HIV, thyroid cancer, lost of sensation of taste Diagnostic Results: 11/21/16 07:20 11/21/16 07:20 Lab Results 11/21/16 07:20: Free T4 1.67, TSH 3rd Generation 3.25 11/21/16 07:20: RPR Nonreactive 11/21/16 07:20: Sodium 140, Potassium 3.4 L, Chloride 102, Carbon Dioxide 27, Anion Gap 14, BUN 15, Creatinine 1.0, Est GFR ( Amer) > 60, Est GFR (Non- Af Amer) 58, Random Glucose 104, Fasting Glucose 104, Calcium 9.4, Total Bilirubin 1.3, AST 31, ALT 35, Alkaline Phosphatase 63, Total Protein 6.9, Albumin 4.4, Globulin 2.5, Albumin/Globulin Ratio 1.8, Triglycerides 75, Cholesterol 157, LDL Cholesterol Direct 80, HDL Cholesterol 55 11/21/16 07:20: WBC 4.5 D, RBC 3.76, Hgb 12.2, Hct 34.2 L, MCV 91.0, MCH 32.4, MCHC 35.7, RDW 13.8, Plt Count 191, MPV 9.1, Gran % 51.5, Lymph % (Auto) 34.2, [place] % (Auto) 13.2 H, Eos % (Auto) 0.7 L, Baso % (Auto) 0.4, Gran # 2.33, Lymph # 1.6, [place] # 0.6, Eos # 0.0, Baso # 0.02 11/20/16 16:38: Alcohol, Quantitative < 10 11/20/16 16:38: Urine Opiates Screen Negative, Urine Methadone Screen Negative, Ur Barbiturates Screen Negative, Ur Phencyclidine Scrn Negative, Ur Amphetamines Screen Negative, U Benzodiazepines Scrn Negative, U Oth Cocaine Metabols Negative, U Cannabinoids Screen Negative 11/20/16 16:38: Sodium 139, Potassium 3.5 L, Chloride 101, Carbon Dioxide 28, Anion Gap 14, BUN 18, Creatinine 1.0, Est GFR ( Amer) > 60, Est GFR (Non- Af Amer) 58, Random Glucose 90, Calcium 9.6, Total Bilirubin 0.8, AST 31, ALT 28 , Alkaline Phosphatase 63, Total Protein 6.8, Albumin 4.3, Globulin 2.5, Albumin /Globulin Ratio 1.7 11/20/16 16:38: Urine Color Yellow, Urine Appearance Clear, Urine pH 7.5, Ur Specific [place] 1.015, Urine Protein 30 H, Urine Glucose (UA) Negative, Urine Ketones Negative, Urine Blood Trace-intact H, Urine Nitrate Negative, Urine Bilirubin Negative, Urine Urobilinogen 0.2, Ur Leukocyte Esterase Large H, Urine RBC 2 - 5, Urine WBC 25 - 30, Ur Epithelial Cells 6 - 8, Amorphous Sediment Few, Urine Bacteria Many, Urine Other Uyeast 11/20/16 16:38: WBC 7.1, RBC 3.78, Hgb 12.4, Hct 34.4 L, MCV 91.0, MCH 32.8, MCHC 36.0, RDW 13.7, Plt Count 195, MPV 9.0, Gran % 63.3, Lymph % (Auto) 26.8, [place] % (Auto) 9.7 H, Eos % (Auto) 0.1 L, Baso % (Auto) 0.1, Gran # 4.52, Lymph # 1.9, [place] # 0.7 H, Eos # 0.0, Baso # 0.01 Vital Signs Temp Pulse Resp BP Pulse Ox 11/23/16 09:05 96 H 141/78 11/23/16 07:44 984 F H 96 H 20 141/78 11/22/16 16:34 90 125/75 11/22/16 09:31 76 118/66 11/22/16 06:56 97.9 F 76 20 118/66 98 11/21/16 16:27 78 144/88 11/21/16 16:19 88 144/78 11/21/16 09:16 93 H 122/62 11/21/16 07:09 98.6 F 93 H 18 122/62 11/20/16 22:02 95 H 146/92 H 11/20/16 18:00 72 18 120/[address] of head was done some ischemia periventricular DSM 5 Symptoms Update: shortly patient is a single 51 yo white female with psychiatric history of depression and anxiety, no prior psychiatric admissions, no SA, in outpatient treatment with Dr. Amin since June 2016, compliant with prescribed Zoloft and Ritalin who was referred for psychiatric admission by Dr. Amin after she presented for office visit today reporting continued depression and hopelessness s/p medication switch from remeron and rexulti to zoloft and ritalin a week ago. pt was seen at tx team meeting, acceptable personal hygiene, pt appears to be anxious. patient reported that she feels depressed, hopeless and helpless, patient also reported that nothing makes her feel happy, patient reported that she has low energy at the morning time and she is forcing herself to get up at the morning time. Patient also reports that that she does not have taste of the food status post thyroid total resection for cancer. Patient reported that she has PTSD symptoms from thyroid cancer what was removed about a year ago, pt had h/o radioactive iodine treatment in November 2015. discussed with today, pt has no improvement with her presentation, pt was tried on remeron, rexulti, ritalin and zoloft. pt said that she feels more anxious, nauseated from zoloft, pt also reported that that she was not able to fall and stay asleep. pt was educated about risk/benefits and alternatives from meds pt chose to be back on remeron, effexor was started, zoloft d/c pt also was in agreement to be seen by neurologist for not able to feel food taste. MSE: Pt was alert, oriented in self, time and place. Memory and concentration are poor, fund of knowledge is fair. Pt deemed to be reliable historian, well related to this tag writer. Pt looks older than chronological age, good personal hygiene, good ADLs, there is some psychomotor retardation, speech was: monotonous, eye contact:intense, mood described: I am very depressed", affect: flat, mood congruent, thought process:overinclusive, circumstantial and tangential, thought content: pt denied SI/ HI, denied v/a/t hallucinations, denied paranoid ideation and pt does not appear to be internally preoccupied or responding to internal stimuli, insight/ judgment: fair, impulses are well controlled. AIMS 0, no EPS Impression: DSM V: r/o MDD r/oPTSD r/o mood disorder due to a GMC Plan: Milieu/structure/supportive therapy Medical consult appreciated, see medical team note for more detailed info neurology consult appreciated, pt has HIV, was seen by infection disease doc CT of head some ischemic changes, will f/u with note zoloft d/c because of anxiety and nausea will start remeron 30mghs for insomnia and appetite bust will start effexor for mdd and anxiety d/w SW consultation for discharge plan and social issues Med management Family involvement Follow up on labs Will monitor closely Pt was educated about risk/benefits and alternatives of medications, coping strategies (safety plan, suicide prevention), relapse prevention, importance of follow up with psychiatrist and therapist, stay away from drugs/alcohol/smoking Medication Change: Yes (effexor started) Medical Record Reviewed: Yes Consults ordered or reviewed: medial/neurology/ID Goal/Treatment Plan - Goal/Treatment Plan Need for Continued Stay: Remain at risks for inpatient hospitalization, Severe depression anxiety, Discharge may exacerbated symptoms, Severe functional impairment Estimated Date of D/C: 11/27/16
--- NOTE | 2016-11-24 01:21 | PN ---
DATE: SUBJECTIVE: The patient is a 51 years old female. The patient is seen and examined at the bedside. Looking comfortable. Complaining about headache and dizziness. Seen by neurologist. No nausea, vomiting, or diarrhea. No hemoptysis or hematochezia. No swelling of the leg. No chest pain or palpitations. PHYSICAL EXAMINATION: VITAL SIGNS: Temperature 98.4, pulse 88, blood pressure 129/83, and respiratory rate 20. HEENT: Head, normocephalic and atraumatic. Eyes, PERRLA. Extraocular muscles intact. Conjunctivae clear. Nose patent. Mucous membranes moist. NECK: Supple. No carotid bruits. No JVD or thyromegaly. CHEST: Bilaterally symmetrical. HEART: S1 and S2 positive. LUNGS: Clear to auscultation. ABDOMEN: Soft. Bowel sounds positive. No organomegaly. EXTREMITIES: No edema. No cyanosis. NEUROLOGICAL: The patient is awake and alert. Moving all 4 extremities. No focal deficits. MEDICATIONS: Ativan, Effexor, K-Deborah, Lopressor, Maalox, milk of magnesia, Pepcid, Remeron, and Tylenol. LABORATORY DATA: White blood cells 4.5, hemoglobin 12.2, hematocrit 34.2, and platelets 191. Sodium 140, potassium 3.4, BUN 15, creatinine 1.0, AST 31, and ALT 35. ASSESSMENT AND PLAN: Ms. Ese Luo is a 51 years old lady with hypokalemia replaced, proteinuria, hematuria, urinary tract infection, and RPR negative. Seen by Dr. Mic Antony for headache. CAT scan of the head is done reviewed by me. The patient has history of human immunodeficiency virus positive, hypertension, papillary thyroid cancer with thyroidectomy, radiation therapy, now has hypothyroidism, history of appendectomy, has anxiety and depression. According to her, she had decreased taste for one year. Decreased sensation of taste can be secondary to anxiety and depression, human immunodeficiency virus medication, and radiation. CAT scan of the head is negative. Per neurologist, we will get levels of vitamin B12. Psychiatrist is on the case. The patient is improving. Gastrointestinal and deep venous thrombosis prophylaxis. Repeat labs. Maryuri Oliveira MD
[2016-11-24] MEDS: SYNTHROID 137 MCG PO SCH (07:31)
[2016-11-24] MEDS: Potassium Chloride 10 mEq ER Tab PO SCH (08:59)
[2016-11-24] MEDS: TIVICAY 50 MG PO SCH (13:04)
--- NOTE | 2016-11-24 15:17 | PCM.PYCHPN ---
Psychiatric Progress Note - Psychiatric Progress Note Patient seen today, length of contact: 30min Patient Chief Complaint: "I had difficulties to fall asleep, at the morning I was feeling groggy..." Medical Problems: HIV, thyroid cancer, lost of sensation of taste Diagnostic Results: 11/21/16 07:20 11/21/16 07:20 Lab Results 11/21/16 07:20: Free T4 1.67, TSH 3rd Generation 3.25 11/21/16 07:20: RPR Nonreactive 11/21/16 07:20: Sodium 140, Potassium 3.4 L, Chloride 102, Carbon Dioxide 27, Anion Gap 14, BUN 15, Creatinine 1.0, Est GFR ( Amer) > 60, Est GFR (Non- Af Amer) 58, Random Glucose 104, Fasting Glucose 104, Calcium 9.4, Total Bilirubin 1.3, AST 31, ALT 35, Alkaline Phosphatase 63, Total Protein 6.9, Albumin 4.4, Globulin 2.5, Albumin/Globulin Ratio 1.8, Triglycerides 75, Cholesterol 157, LDL Cholesterol Direct 80, HDL Cholesterol 55 11/21/16 07:20: WBC 4.5 D, RBC 3.76, Hgb 12.2, Hct 34.2 L, MCV 91.0, MCH 32.4, MCHC 35.7, RDW 13.8, Plt Count 191, MPV 9.1, Gran % 51.5, Lymph % (Auto) 34.2, [place] % (Auto) 13.2 H, Eos % (Auto) 0.7 L, Baso % (Auto) 0.4, Gran # 2.33, Lymph # 1.6, [place] # 0.6, Eos # 0.0, Baso # 0.02 11/20/16 16:38: Alcohol, Quantitative < 10 11/20/16 16:38: Urine Opiates Screen Negative, Urine Methadone Screen Negative, Ur Barbiturates Screen Negative, Ur Phencyclidine Scrn Negative, Ur Amphetamines Screen Negative, U Benzodiazepines Scrn Negative, U Oth Cocaine Metabols Negative, U Cannabinoids Screen Negative 11/20/16 16:38: Sodium 139, Potassium 3.5 L, Chloride 101, Carbon Dioxide 28, Anion Gap 14, BUN 18, Creatinine 1.0, Est GFR ( Amer) > 60, Est GFR (Non- Af Amer) 58, Random Glucose 90, Calcium 9.6, Total Bilirubin 0.8, AST 31, ALT 28 , Alkaline Phosphatase 63, Total Protein 6.8, Albumin 4.3, Globulin 2.5, Albumin /Globulin Ratio 1.7 11/20/16 16:38: Urine Color Yellow, Urine Appearance Clear, Urine pH 7.5, Ur Specific [place] 1.015, Urine Protein 30 H, Urine Glucose (UA) Negative, Urine Ketones Negative, Urine Blood Trace-intact H, Urine Nitrate Negative, Urine Bilirubin Negative, Urine Urobilinogen 0.2, Ur Leukocyte Esterase Large H, Urine RBC 2 - 5, Urine WBC 25 - 30, Ur Epithelial Cells 6 - 8, Amorphous Sediment Few, Urine Bacteria Many, Urine Other Uyeast 11/20/16 16:38: WBC 7.1, RBC 3.78, Hgb 12.4, Hct 34.4 L, MCV 91.0, MCH 32.8, MCHC 36.0, RDW 13.7, Plt Count 195, MPV 9.0, Gran % 63.3, Lymph % (Auto) 26.8, [place] % (Auto) 9.7 H, Eos % (Auto) 0.1 L, Baso % (Auto) 0.1, Gran # 4.52, Lymph # 1.9, [place] # 0.7 H, Eos # 0.0, Baso # 0.01 Vital Signs Temp Pulse Resp BP Pulse Ox 11/23/16 09:05 96 H 141/78 11/23/16 07:44 984 F H 96 H 20 141/78 11/22/16 16:34 90 125/75 11/22/16 09:31 76 118/66 11/22/16 06:56 97.9 F 76 20 118/66 98 11/21/16 16:27 78 144/88 11/21/16 16:19 88 144/78 11/21/16 09:16 93 H 122/62 11/21/16 07:09 98.6 F 93 H 18 122/62 11/20/16 22:02 95 H 146/92 H 11/20/16 18:00 72 18 120/[address] of head was done some ischemia periventricular Abnormal Lab Results 11/24/16 07:51 Vitamin B12 857 DSM 5 Symptoms Update: shortly patient is a single 51 yo white female with psychiatric history of depression and anxiety, no prior psychiatric admissions, no SA, in outpatient treatment with Dr. Amin since June 2016, compliant with prescribed Zoloft and Ritalin who was referred for psychiatric admission by Dr. Amin after she presented for office visit today reporting continued depression and hopelessness s/p medication switch from remeron and rexulti to zoloft and ritalin a week ago, h/o being tx with TCA. pt was seen at tx team meeting room with medical students, acceptable personal hygiene, pt appears to be anxious. pt obviously was slow, difficulties to stay focused and concentrate. pt c/o difficulties to fall asleep. patient reported that she feels depressed, hopeless and helpless, asked may questions about her presentation and about a lot of psychosomatic complaints, for example numbness and tingling over her head "It is on and off". tolerated effexor well, willing to increase dose further, c/o palpitations, was advised to take ativan prn. MSE: Pt was alert, oriented in self, time and place. Memory and concentration are poor, fund of knowledge is fair. Pt deemed to be reliable historian, well related to this field underwriter. Pt looks older than chronological age, good personal hygiene, good ADLs, there is some psychomotor retardation, speech was: monotonous, eye contact:intense, mood described: "I am very depressed", affect: flat, mood congruent, thought process: overinclusive, circumstantial and tangential, thought content: pt denied SI/ HI, denied v/a/t hallucinations, denied paranoid ideation and pt does not appear to be internally preoccupied or responding to internal stimuli, insight/ judgment: fair, impulses are well controlled. AIMS 0, no EPS Impression: DSM V: r/o MDD r/oPTSD r/o mood disorder due to a GMC Plan: Milieu/structure/supportive therapy Medical consult appreciated, see medical team note for more detailed info neurology consult appreciated, pt has HIV, was seen by infection disease doc CT of head some ischemic changes, will f/u with note zoloft d/c because of anxiety and nausea remeron 30mghs for insomnia and appetite bust effexor will be increased to 75mg daily for mdd and anxiety d/w SW consultation for discharge plan and social issues Med management Family involvement Follow up on labs Will monitor closely Pt was educated about risk/benefits and alternatives of medications, coping strategies (safety plan, suicide prevention), relapse prevention, importance of follow up with psychiatrist and therapist, stay away from drugs/alcohol/smoking Medication Change: Yes (effexor increased) Medical Record Reviewed: Yes Consults ordered or reviewed: medial/neurology/ID Mental Status Examination - Cognitive Function Orientation: Person, Place, Situation Attention: WNL Concentration: WNL - Mood Mood: Depressed, Anxious - Affect Affect: Constricted - Speech Speech: Appropriate - Formal Thought Process Formal Thought Process: No Impairment - Suicidal Ideation Suicidal Ideation: No - Homicidal Ideation Homicidal Ideation: No Goal/Treatment Plan - Goal/Treatment Plan Need for Continued Stay: Remain at risks for inpatient hospitalization, Severe depression anxiety, Discharge may exacerbated symptoms, Severe functional impairment Estimated Date of D/C: 11/27/16
[2016-11-24] MEDS: DESCOVY PO SCH (21:29)
--- NOTE | 2016-11-25 02:25 | PN ---
DATE: SUBJECTIVE: The patient is a 51 years old female. The patient was seen and examined on the bedside, sitting on the chair,checking with the nurse. No nausea, vomiting or diarrhea. No hematuria or hematochezia. No swelling of the leg. No chest pain or palpitations. According to the patient, last night she cannot sleep. When she woke up, she was groggy, having headache. Her neurologist is on the case. PHYSICAL EXAMINATION VITAL SIGNS: Temperature 98.5, pulse 82, blood pressure 135/72 and respiratory rate 20. HEENT: Head, normocephalic and atraumatic. Eyes, PERRLA. Extraocular muscles intact. Conjunctivae clear. Nose patent. Mucous membranes moist. NECK: Supple. No carotid bruits. No JVD or thyromegaly. CHEST: Bilaterally symmetrical. HEART: S1 and S2 positive. LUNGS: Clear to auscultation. ABDOMEN: Soft. Bowel sounds positive. No organomegaly. EXTREMITIES: No edema. No cyanosis. NEUROLOGICAL: The patient is awake and alert. Moving all 4 extremities. No focal deficits. MEDICATIONS: Ativan, Effexor, potassium, Lopressor, Maalox, milk of magnesia, Pepcid, Remeron and Tylenol. LABORATORY DATA: We do not have recent lab today, but I reviewed the old labs. ASSESSMENT AND PLAN: Ms. Ese Luo is a 51 years old lady with human immunodeficiency virus positive, getting treatment, stable; history of thyroid cancer status post surgery and radiation therapy; loss of sensation of the taste; history of hypokalemia, replaced; history of depression, came in to psych department for treatment. As per patient, she has headache. Neurology is on the case. As per patient, she cannot sleep last night. Discussion done with her in length of time of her sleep hygiene. We will follow up. Maryuri Oliveira MD
[2016-11-25] MEDS: SYNTHROID 137 MCG PO SCH (07:22)
[2016-11-25] MEDS: Potassium Chloride 10 mEq ER Tab PO SCH (09:00)
--- NOTE | 2016-11-25 12:42 | PCM.PYCHPN ---
Psychiatric Progress Note - Psychiatric Progress Note Patient seen today, length of contact: 30min Patient Chief Complaint: "I slept better" Medical Problems: HIV, thyroid cancer, lost of sensation of taste Diagnostic Results: 11/21/16 07:20 11/21/16 07:20 Lab Results 11/21/16 07:20: Free T4 1.67, TSH 3rd Generation 3.25 11/21/16 07:20: RPR Nonreactive 11/21/16 07:20: Sodium 140, Potassium 3.4 L, Chloride 102, Carbon Dioxide 27, Anion Gap 14, BUN 15, Creatinine 1.0, Est GFR ( Amer) > 60, Est GFR (Non- Af Amer) 58, Random Glucose 104, Fasting Glucose 104, Calcium 9.4, Total Bilirubin 1.3, AST 31, ALT 35, Alkaline Phosphatase 63, Total Protein 6.9, Albumin 4.4, Globulin 2.5, Albumin/Globulin Ratio 1.8, Triglycerides 75, Cholesterol 157, LDL Cholesterol Direct 80, HDL Cholesterol 55 11/21/16 07:20: WBC 4.5 D, RBC 3.76, Hgb 12.2, Hct 34.2 L, MCV 91.0, MCH 32.4, MCHC 35.7, RDW 13.8, Plt Count 191, MPV 9.1, Gran % 51.5, Lymph % (Auto) 34.2, [place] % (Auto) 13.2 H, Eos % (Auto) 0.7 L, Baso % (Auto) 0.4, Gran # 2.33, Lymph # 1.6, [place] # 0.6, Eos # 0.0, Baso # 0.02 11/20/16 16:38: Alcohol, Quantitative < 10 11/20/16 16:38: Urine Opiates Screen Negative, Urine Methadone Screen Negative, Ur Barbiturates Screen Negative, Ur Phencyclidine Scrn Negative, Ur Amphetamines Screen Negative, U Benzodiazepines Scrn Negative, U Oth Cocaine Metabols Negative, U Cannabinoids Screen Negative 11/20/16 16:38: Sodium 139, Potassium 3.5 L, Chloride 101, Carbon Dioxide 28, Anion Gap 14, BUN 18, Creatinine 1.0, Est GFR ( Amer) > 60, Est GFR (Non- Af Amer) 58, Random Glucose 90, Calcium 9.6, Total Bilirubin 0.8, AST 31, ALT 28 , Alkaline Phosphatase 63, Total Protein 6.8, Albumin 4.3, Globulin 2.5, Albumin /Globulin Ratio 1.7 11/20/16 16:38: Urine Color Yellow, Urine Appearance Clear, Urine pH 7.5, Ur Specific [place] 1.015, Urine Protein 30 H, Urine Glucose (UA) Negative, Urine Ketones Negative, Urine Blood Trace-intact H, Urine Nitrate Negative, Urine Bilirubin Negative, Urine Urobilinogen 0.2, Ur Leukocyte Esterase Large H, Urine RBC 2 - 5, Urine WBC 25 - 30, Ur Epithelial Cells 6 - 8, Amorphous Sediment Few, Urine Bacteria Many, Urine Other Uyeast 11/20/16 16:38: WBC 7.1, RBC 3.78, Hgb 12.4, Hct 34.4 L, MCV 91.0, MCH 32.8, MCHC 36.0, RDW 13.7, Plt Count 195, MPV 9.0, Gran % 63.3, Lymph % (Auto) 26.8, [place] % (Auto) 9.7 H, Eos % (Auto) 0.1 L, Baso % (Auto) 0.1, Gran # 4.52, Lymph # 1.9, [place] # 0.7 H, Eos # 0.0, Baso # 0.01 Vital Signs Temp Pulse Resp BP Pulse Ox 11/23/16 09:05 96 H 141/78 11/23/16 07:44 984 F H 96 H 20 141/78 11/22/16 16:34 90 125/75 11/22/16 09:31 76 118/66 11/22/16 06:56 97.9 F 76 20 118/66 98 11/21/16 16:27 78 144/88 11/21/16 16:19 88 144/78 11/21/16 09:16 93 H 122/62 11/21/16 07:09 98.6 F 93 H 18 122/62 11/20/16 22:02 95 H 146/92 H 11/20/16 18:00 72 18 120/[address] of head was done some ischemia periventricular Abnormal Lab Results 11/24/16 07:51 Vitamin B12 857 DSM 5 Symptoms Update: shortly patient is a single 51 yo white female with psychiatric history of depression and anxiety, no prior psychiatric admissions, no SA, in outpatient treatment with Dr. Amin since June 2016, was compliant with prescribed Zoloft and Ritalin who was referred for psychiatric admission by Dr. Amin after she presented for office visit reporting continued depression and hopelessness s/p medication switch from remeron and rexulti to zoloft and ritalin about a week prior to this hospitalization, h/o being tx with TCA. 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 pt has some improvement with her cognition, pt was able to stay focused more. pt said that she slept relatively well, no major side effects from meds observed or reported. AIMS 0, no EPS tolerated effexor well, willing to increase dose further, palpitations are better. MSE: Pt was alert, oriented in self, time and place. Memory and concentration are improving, fund of knowledge is fair. Pt deemed to be reliable historian, well related to this data analyst report writer. Pt looks older than chronological age, good personal hygiene, good ADLs, there is some psychomotor retardation but with some improvement, speech was: monotonous, eye contact:intense, mood described: "I am more hopeful", affect: flat, mood congruent, thought process: overinclusive, circumstantial, pt was asking multiple questions about medications, about the reason why this data analyst report writer chose effexor, all questions answered, thought content: pt denied SI/ HI, denied v/a/t hallucinations, denied paranoid ideation and pt does not appear to be internally preoccupied or responding to internal stimuli, insight/ judgment: fair, impulses are well controlled. Impression: DSM V: r/o MDD r/oPTSD r/o mood disorder due to a GMC Plan: Milieu/structure/supportive therapy Medical consult appreciated, see medical team note for more detailed info neurology consult appreciated, pt has HIV, was seen by infection disease doc CT of head some ischemic changes, report was provided to the pt remeron 30mghs for insomnia and appetite bust effexor will be increased to ER 150mg daily for mdd and anxiety d/w SW consultation for discharge plan and social issues Med management Family involvement Follow up on labs Will monitor closely Pt was educated about risk/benefits and alternatives of medications, coping strategies (safety plan, suicide prevention), relapse prevention, importance of follow up with psychiatrist and therapist, stay away from drugs/alcohol/smoking Medication Change: Yes (effexor increased) Medical Record Reviewed: Yes Consults ordered or reviewed: medial/neurology/ID Mental Status Examination - Cognitive Function Orientation: Person, Place, Situation Attention: WNL Concentration: WNL - Mood Mood: Depressed, Anxious - Affect Affect: Constricted - Speech Speech: Appropriate - Formal Thought Process Formal Thought Process: No Impairment - Suicidal Ideation Suicidal Ideation: No - Homicidal Ideation Homicidal Ideation: No Goal/Treatment Plan - Goal/Treatment Plan Need for Continued Stay: Remain at risks for inpatient hospitalization, Severe depression anxiety, Discharge may exacerbated symptoms, Severe functional impairment Estimated Date of D/C: 11/27/16
[2016-11-25] MEDS: TIVICAY 50 MG PO SCH (12:55)
[2016-11-25] MEDS: DESCOVY PO SCH (21:37)
--- NOTE | 2016-11-26 06:36 | PN ---
SUBJECTIVE: The patient is 51 years old female. The patient was examined at the bedside, looking comfortable. No nausea, vomiting, or diarrhea. No hematuria or hematochezia. No swelling of the leg. No chest pain. No palpitation. Headache is better. Moving all 4 extremities. No focal deficits. PHYSICAL EXAMINATION VITAL SIGNS: Temperature 97.7, pulse 72, blood pressure 133/78, respiratory rate 17. HEENT: Head normocephalic, atraumatic. Eyes: PERRLA. Extraocular muscles intact. Conjunctivae clear. Nose patent. NECK: Supple. No carotid bruits. No JVD or thyromegaly. CHEST: Bilaterally symmetrical. HEART: S1 and S2 positive. LUNGS: Clear to auscultation. ABDOMEN: Soft. Bowel sounds present. No organomegaly. EXTREMITIES: No edema. No cyanosis. NEUROLOGIC: The patient is awake and alert, follows simple commands. MEDICATIONS: Ativan, Effexor. HOME MEDICATIONS: Potassium, Lopressor, milk of magnesia, Pepcid, Remeron, Tylenol. LABORATORY DATA: We do not have recent lab today, but we reviewed the old labs. ASSESSMENT AND PLAN: Mr. Ese Luo has hypopotassemia; replaced, proteinuria, hematuria, urinary tract infection, hyper cells are negative, rapid plasma reagin was negative. Seen by Dr. Danielle Smith, she is psychiatrist on the case. The patient is cleared by Dr. Antony. The patient is getting psych medications from Dr. Danielle Smith. Repeat labs. We will follow. Maryuri Oliveira MD MTDD
[2016-11-26 06:53] VITALS: RESP 18; TEMP 98.3
[2016-11-26] MEDS: SYNTHROID 137 MCG PO SCH (07:32)
[2016-11-26] MEDS ORDERED: Venlafaxine 75 mg ER Cap PO SCH (08:00)
[2016-11-26] MEDS: Potassium Chloride 10 mEq ER Tab PO SCH (08:50)
[2016-11-26] MEDS: TIVICAY 50 MG PO SCH (13:06)
--- NOTE | 2016-11-26 14:12 | PCM.PYCHPN ---
Psychiatric Progress Note - Psychiatric Progress Note Patient seen today, length of contact: 30min Patient Chief Complaint: "I slept better" Medical Problems: HIV, thyroid cancer, lost of sensation of taste Diagnostic Results: 11/21/16 07:20 11/21/16 07:20 Lab Results 11/21/16 07:20: Free T4 1.67, TSH 3rd Generation 3.25 11/21/16 07:20: RPR Nonreactive 11/21/16 07:20: Sodium 140, Potassium 3.4 L, Chloride 102, Carbon Dioxide 27, Anion Gap 14, BUN 15, Creatinine 1.0, Est GFR ( Amer) > 60, Est GFR (Non- Af Amer) 58, Random Glucose 104, Fasting Glucose 104, Calcium 9.4, Total Bilirubin 1.3, AST 31, ALT 35, Alkaline Phosphatase 63, Total Protein 6.9, Albumin 4.4, Globulin 2.5, Albumin/Globulin Ratio 1.8, Triglycerides 75, Cholesterol 157, LDL Cholesterol Direct 80, HDL Cholesterol 55 11/21/16 07:20: WBC 4.5 D, RBC 3.76, Hgb 12.2, Hct 34.2 L, MCV 91.0, MCH 32.4, MCHC 35.7, RDW 13.8, Plt Count 191, MPV 9.1, Gran % 51.5, Lymph % (Auto) 34.2, [place] % (Auto) 13.2 H, Eos % (Auto) 0.7 L, Baso % (Auto) 0.4, Gran # 2.33, Lymph # 1.6, [place] # 0.6, Eos # 0.0, Baso # 0.02 11/20/16 16:38: Alcohol, Quantitative < 10 11/20/16 16:38: Urine Opiates Screen Negative, Urine Methadone Screen Negative, Ur Barbiturates Screen Negative, Ur Phencyclidine Scrn Negative, Ur Amphetamines Screen Negative, U Benzodiazepines Scrn Negative, U Oth Cocaine Metabols Negative, U Cannabinoids Screen Negative 11/20/16 16:38: Sodium 139, Potassium 3.5 L, Chloride 101, Carbon Dioxide 28, Anion Gap 14, BUN 18, Creatinine 1.0, Est GFR ( Amer) > 60, Est GFR (Non- Af Amer) 58, Random Glucose 90, Calcium 9.6, Total Bilirubin 0.8, AST 31, ALT 28 , Alkaline Phosphatase 63, Total Protein 6.8, Albumin 4.3, Globulin 2.5, Albumin /Globulin Ratio 1.7 11/20/16 16:38: Urine Color Yellow, Urine Appearance Clear, Urine pH 7.5, Ur Specific [place] 1.015, Urine Protein 30 H, Urine Glucose (UA) Negative, Urine Ketones Negative, Urine Blood Trace-intact H, Urine Nitrate Negative, Urine Bilirubin Negative, Urine Urobilinogen 0.2, Ur Leukocyte Esterase Large H, Urine RBC 2 - 5, Urine WBC 25 - 30, Ur Epithelial Cells 6 - 8, Amorphous Sediment Few, Urine Bacteria Many, Urine Other Uyeast 11/20/16 16:38: WBC 7.1, RBC 3.78, Hgb 12.4, Hct 34.4 L, MCV 91.0, MCH 32.8, MCHC 36.0, RDW 13.7, Plt Count 195, MPV 9.0, Gran % 63.3, Lymph % (Auto) 26.8, [place] % (Auto) 9.7 H, Eos % (Auto) 0.1 L, Baso % (Auto) 0.1, Gran # 4.52, Lymph # 1.9, [place] # 0.7 H, Eos # 0.0, Baso # 0.01 Vital Signs Temp Pulse Resp BP Pulse Ox 11/23/16 09:05 96 H 141/78 11/23/16 07:44 984 F H 96 H 20 141/78 11/22/16 16:34 90 125/75 11/22/16 09:31 76 118/66 11/22/16 06:56 97.9 F 76 20 118/66 98 11/21/16 16:27 78 144/88 11/21/16 16:19 88 144/78 11/21/16 09:16 93 H 122/62 11/21/16 07:09 98.6 F 93 H 18 122/62 11/20/16 22:02 95 H 146/92 H 11/20/16 18:00 72 18 120/[address] of head was done some ischemia periventricular Abnormal Lab Results 11/24/16 07:51 Vitamin B12 857 Temp Pulse Resp BP Pulse Ox 98.3 F 85 18 119/72 98 11/26/16 07:00 11/26/16 08:50 11/26/16 07:00 11/26/16 08:50 11/22/16 06:56 DSM 5 Symptoms Update: shortly patient is a single 51 yo white female with psychiatric history of depression and anxiety, no prior psychiatric admissions, no SA, in outpatient treatment with Dr. Amin since June 2016, was compliant with prescribed Zoloft and Ritalin who was referred for psychiatric admission by Dr. Amin after she presented for office visit reporting continued depression and hopelessness s/p medication switch from remeron and rexulti to zoloft and ritalin about a week prior to this hospitalization, h/o being tx with TCA. pt was seen at tx team meeting room with medical students, improved personal hygiene, affect seems to be more reactive, pt has some improvement with her cognition, pt was able to stay focused more. pt said that she slept relatively well, no major side effects from meds observed or reported. at the same time pt is very somatic, making vague complaints such as "foggy brain", "some tingling on the scalp" AIMS 0, no EPS tolerated effexor well, willing to increase dose further, palpitations are better. MSE: Pt was alert, oriented in self, time and place. Memory and concentration are improving, fund of knowledge is fair. 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 Impression: DSM V: r/o MDD r/oPTSD r/o mood disorder due to a GMC Plan: Milieu/structure/supportive therapy Medical consult appreciated, see medical team note for more detailed info neurology consult appreciated, pt has HIV, was seen by infection disease doc CT of head some ischemic changes, report was provided to the pt remeron 30mghs for insomnia and appetite effexor ER 150mg daily for mdd and anxiety d/w SW consultation for discharge plan and social issues Med management Family involvement Follow up on labs Will monitor closely possible d/c tomorrow Pt was educated about risk/benefits and alternatives of medications, coping strategies (safety plan, suicide prevention), relapse prevention, importance of follow up with psychiatrist and therapist, stay away from drugs/alcohol/smoking Medication Change: No (effexor increased yesterday) Medical Record Reviewed: Yes Consults ordered or reviewed: medial/neurology/ID Mental Status Examination - Cognitive Function Orientation: Person, Place, Situation Attention: WNL Concentration: WNL - Mood Mood: Depressed, Anxious - Affect Affect: Constricted - Speech Speech: Appropriate - Formal Thought Process Formal Thought Process: No Impairment - Suicidal Ideation Suicidal Ideation: No - Homicidal Ideation Homicidal Ideation: No Goal/Treatment Plan - Goal/Treatment Plan Need for Continued Stay: Remain at risks for inpatient hospitalization, Severe depression anxiety, Discharge may exacerbated symptoms, Severe functional impairment Estimated Date of D/C: 11/27/16
[2016-11-26 16:20] VITALS: BP 140/81; PULSE 84
--- NOTE | 2016-11-27 00:45 | PN ---
DATE: 11/26/2016 SUBJECTIVE: The patient is a 51-year-old female. The patient was seen and examined on 11/26/2016. The patient is looking comfortable. No nausea, vomiting, or diarrhea. No hematuria or hematochezia. Headache is better. No chest pain. No palpitation. Today, she is realizing that her headache is not actually a headache, it comes with anxiety. PHYSICAL EXAMINATION: VITAL SIGNS: Temperature is 98.3, heart rate 84, blood pressure 140/80, respiratory rate 18. HEENT: Head is normocephalic and atraumatic. Eyes, PERRLA. Extraocular muscles intact. Conjunctivae clear. Nose patent. Mucous membranes moist. NECK: Supple. No carotid bruits, JVD, or thyromegaly. CHEST: Bilaterally symmetrical. HEART: S1 and S2 positive. LUNGS: Clear to auscultation. ABDOMEN: Soft. Bowel sounds present. No organomegaly. EXTREMITIES: No edema. No cyanosis. NEUROLOGIC: The patient is awake and alert. Moving all 4 extremities. No focal deficit. MEDICATIONS: Reviewed by me, Effexor, HIV medication, Lopressor. LABORATORY DATA: I do not have her recent labs today, but I reviewed old labs. ASSESSMENT AND PLAN: The patient is a 51-year-old lady with a history of human immunodeficiency virus positive, getting medications; hypopotassemia, replaced; proteinuria; hematuria; urinary tract infection, got antibiotics; came with depression and anxiety, Dr. Santos treated the patient and she got better; seen by neurologist for headache. Discharge home today. Will follow up her primary care physician and psychiatrist. Maryuri Oliveira MD
--- NOTE | 2016-11-27 16:25 | PCM.PYCHDC ---
Mental Status Examination - Mental Status Examination Orientation: Person, Place, Situation, Time Memory: Intact Mood: Neutral Affect: Constricted (but more reactive, mood congruent) Speech: Appropriate Attention: WNL Concentration: WNL Association: WNL Fund of Knowledge: WNL Formal Thought Process: No Impairment Description of patient's judgement and insight: Pt has improved insight into mental and medical illness, pt was compliant with medications and unit rules and regulations, pt was going to groups, was calm, cooperative, socially appropriate, no behavioral incidents, no agitation, no aggression. Psychotic Thoughts and Behaviors: Pt denied v/a/t hallucinations, denied paranoid ideations, pt does not appear to be psychotic, and thought process is goal directed. Suicidal Ideation: No Current Homicidal Ideation?: No Plan: pt adamantly denied thoughts of harming self or others denied intent or plan. Discharge Summary - Discharge Note Reason for Hospitalization: depression, anxiety, inability to function Psychiatric History (includes Medical, Family, Personal Hx): h/o depression and anxiety Laboratory Data: 11/21/16 07:20 11/21/16 07:20 Lab Results 11/24/16 07:51: Vitamin B12 857 11/21/16 07:20: Free T4 1.67, TSH 3rd Generation 3.25 11/21/16 07:20: RPR Nonreactive 11/21/16 07:20: Sodium 140, Potassium 3.4 L, Chloride 102, Carbon Dioxide 27, Anion Gap 14, BUN 15, Creatinine 1.0, Est GFR ( Amer) > 60, Est GFR (Non- Af Amer) 58, Random Glucose 104, Fasting Glucose 104, Calcium 9.4, Total Bilirubin 1.3, AST 31, ALT 35, Alkaline Phosphatase 63, Total Protein 6.9, Albumin 4.4, Globulin 2.5, Albumin/Globulin Ratio 1.8, Triglycerides 75, Cholesterol 157, LDL Cholesterol Direct 80, HDL Cholesterol 55 11/21/16 07:20: WBC 4.5 D, RBC 3.76, Hgb 12.2, Hct 34.2 L, MCV 91.0, MCH 32.4, MCHC 35.7, RDW 13.8, Plt Count 191, MPV 9.1, Gran % 51.5, Lymph % (Auto) 34.2, [place] % (Auto) 13.2 H, Eos % (Auto) 0.7 L, Baso % (Auto) 0.4, Gran # 2.33, Lymph # 1.6, [place] # 0.6, Eos # 0.0, Baso # 0.02 11/20/16 16:38: Alcohol, Quantitative < 10 11/20/16 16:38: Urine Opiates Screen Negative, Urine Methadone Screen Negative, Ur Barbiturates Screen Negative, Ur Phencyclidine Scrn Negative, Ur Amphetamines Screen Negative, U Benzodiazepines Scrn Negative, U Oth Cocaine Metabols Negative, U Cannabinoids Screen Negative 11/20/16 16:38: Sodium 139, Potassium 3.5 L, Chloride 101, Carbon Dioxide 28, Anion Gap 14, BUN 18, Creatinine 1.0, Est GFR ( Amer) > 60, Est GFR (Non- Af Amer) 58, Random Glucose 90, Calcium 9.6, Total Bilirubin 0.8, AST 31, ALT 28 , Alkaline Phosphatase 63, Total Protein 6.8, Albumin 4.3, Globulin 2.5, Albumin /Globulin Ratio 1.7 11/20/16 16:38: Urine Color Yellow, Urine Appearance Clear, Urine pH 7.5, Ur Specific [place] 1.015, Urine Protein 30 H, Urine Glucose (UA) Negative, Urine Ketones Negative, Urine Blood Trace-intact H, Urine Nitrate Negative, Urine Bilirubin Negative, Urine Urobilinogen 0.2, Ur Leukocyte Esterase Large H, Urine RBC 2 - 5, Urine WBC 25 - 30, Ur Epithelial Cells 6 - 8, Amorphous Sediment Few, Urine Bacteria Many, Urine Other [place] 11/20/16 16:38: WBC 7.1, RBC 3.78, Hgb 12.4, Hct 34.4 L, MCV 91.0, MCH 32.8, MCHC 36.0, RDW 13.7, Plt Count 195, MPV 9.0, Gran % 63.3, Lymph % (Auto) 26.8, [place] % (Auto) 9.7 H, Eos % (Auto) 0.1 L, Baso % (Auto) 0.1, Gran # 4.52, Lymph # 1.9, [place] # 0.7 H, Eos # 0.0, Baso # 0.01 Vital Signs Temp Pulse Resp BP Pulse Ox 11/26/16 16:16 84 140/81 11/26/16 16:00 81 140/81 09/28/17 08:50 85 119/72 11/26/16 07:00 98.3 F 85 18 119/72 11/26/16 06:52 98.3 F 85 18 119/72 11/25/16 17:26 72 133/78 11/25/16 15:00 72 133/78 11/25/16 10:09 79 119/68 11/25/16 07:09 97.7 F 79 17 119/68 11/24/16 16:00 82 134/72 11/24/16 08:59 72 133/79 11/24/16 07:00 98.5 F 78 20 133/79 11/23/16 16:23 88 129/83 11/23/16 09:05 96 H 141/78 11/23/16 07:44 984 F H 96 H 20 141/78 11/22/16 16:34 90 125/75 11/22/16 09:31 76 118/66 11/22/16 06:56 97.9 F 76 20 118/66 98 11/21/16 16:27 78 144/88 11/21/16 16:19 88 144/78 11/21/16 09:16 93 H 122/62 11/21/16 07:09 98.6 F 93 H 18 122/62 11/20/16 22:02 95 H 146/92 H 11/20/16 18:00 72 18 120/80 97 Consultations:: List each consultation separately and include: 1. Reason for request. 2. Findings. 3. Follow-up Consultations: medial/neurology/ID see notes for more detailed information Summary of Hospital Course include:: 1. Description of specific treatment plan utilized for patients during their course of treatmen. 2. Summarize the time- course for resolution of acute symptoms and/or regressed behaviors. 3. Describe issues identified and worked on during hospitalization. 4. Describe medication utilized. 5. Describe medical problems identified and treated. 6. Reassessment of suicide risk Summary of Hospital Course: shortly patient is a single 51 yo white female with psychiatric history of depression and anxiety, no prior psychiatric admissions, no SA, in outpatient treatment with Dr. Amin since June 2016, compliant with prescribed Zoloft and Ritalin who was referred for psychiatric admission by Dr. Amin after she presented for office visit today reporting continued depression and hopelessness s/p medication switch from remeron and rexulti to zoloft and ritalin a week ago. initially pt was seen at tx team meeting, acceptable personal hygiene, pt appears to be anxious. patient reported that she feels depressed, hopeless and helpless, patient also reported that nothing makes her feel happy, patient reported that she has low energy at the morning time and she is forcing herself to get up at the morning time. Patient also reports that that she does not have taste of the food status post thyroid total resection for cancer. Patient reported that she has PTSD symptoms from thyroid cancer what was removed about a year ago, pt had h/o radioactive iodine treatment in November 2015. discussed with , pt has no improvement with her presentation, pt was tried on remeron, rexulti, ritalin and zoloft. pt said that she feels more anxious, nauseated from zoloft, pt also reported that that she was not able to fall and stay asleep. pt was educated about risk/benefits and alternatives from meds pt chose to be back on remeron, effexor was started, zoloft d/c pt also was in agreement to be seen by neurologist for not able to feel food taste. pt most likely has MDD, PTSD, r/o mood disorder due to a GMC, pt also has strong dependent personality traits. pt was seen by medical team, see medical team note for more detailed info neurology consult appreciated, CT of head some ischemic changes pt has HIV, was seen by infection disease doc see notes for info zoloft d/c because of anxiety and nausea remeron 30mghs for insomnia and appetite boost effexor was titrated up to 150 daily XR pt tolerated meds well, no side effects observed or reported, AIMS 0, no EPS. Over the course of this hospitalization pt was attending groups, pt also had medication management, had therapeutic milieu. Overall pt improved significantly, pt's affect became brighter, pt was less depressed, has realistic future oriented plans, pt also does not appear to be psychotic, or anxious, pt was socially appropriate, no behavioral issues, pts insight improved as well and soon pt deemed to be ready for discharge. At the time of the discharge pt denied been depressed, denied thoughts of harming self or others, denied psychotic symptoms, and pt does not appeared to be psychotic, denied been anxious, pt is not in imminent danger to self or others, will be following up at office.., information about follow up appointment, time and address provided to the pt, it is patient responsibility to follow up with outpatient clinic, PMD as well as specialists ( see SW note for more detailed information). In case pt will need to obtain results of studies pending at discharge pt was provided with contact information of Psychiatric Inpatient unit [phone] as well as Medical Record Department [phone]. pt was provided with prescriptions for all of medications (please see medication reconciliation form) Pt was educated about safety plan in case of worsening of symptoms or in case of suicidal or homicidal ideation call 911 or go to the nearest ER, also was educated to take meds as prescribed and stay away from drugs, pt verbalized understanding. 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 Status: Acute (3) PTSD (post-traumatic stress disorder) Status: Acute (4) Dependent personality disorder Status: Acute - Final Diagnosis (DSM 5) Condition upon Discharge: STABLE Disposition: HOME/ ROUTINE Follow-up Treatment Plan: At the time of the discharge pt denied been depressed, denied thoughts of harming self or others, denied psychotic symptoms, and pt does not appeared to be psychotic, denied been anxious, pt is not in imminent danger to self or others, will be following up at office.., information about follow up appointment, time and address provided to the pt, it is patient responsibility to follow up with outpatient clinic, PMD as well as specialists ( see SW note for more detailed information). In case pt will need to obtain results of studies pending at discharge pt was provided with contact information of Psychiatric Inpatient unit [phone] as well as Medical Record Department [phone]. pt was provided with prescriptions for all of medications (please see medication reconciliation form) Pt was educated about safety plan in case of worsening of symptoms or in case of suicidal or homicidal ideation call 911 or go to the nearest ER, also was educated to take meds as prescribed and stay away from drugs, pt verbalized understanding. Prescriptions/Medication Reconciliation: LORazepam [Ativan] 0.5 mg PO DAILY #14 tab Mirtazapine [Remeron] 30 mg PO HS #14 tab Venlafaxine [Effexor XR] 150 mg PO DAILY #14 cer - Smoking Cessation Smoking Cessation Medication prescribed: No Reason for not providing: pt does not smoke - Antipsychotic Medications Pt discharged on 2 or more routine antipsychotic medications: No
== END 2016-11-26 18:45 | disposition home or self-care (01) | DRG 881 ==
LOC: ED 14:37 → ERH 16:14 → PSYC 19:21
PROVIDERS: ADMIT Psychiatry & Neurology Psychiatry; ATTEND Psychiatry & Neurology Psychiatry
DX: F32.9 Major depressive disorder, single episode, unspecified (principal); N39.0 Urinary tract infection, site not specified; F06.30 Mood disorder due to known physiological condition, unspecified; F43.10 Post-traumatic stress disorder, unspecified; F60.7 Dependent personality disorder; I10 Essential (primary) hypertension; Z21 Asymptomatic human immunodeficiency virus [HIV] infection status; E89.0 Postprocedural hypothyroidism; E87.6 Hypokalemia; K21.9 Gastro-esophageal reflux disease without esophagitis; R31.9 Hematuria, unspecified; F41.9 Anxiety disorder, unspecified; Z85.850 Personal history of malignant neoplasm of thyroid; Z88.2 Allergy status to sulfonamides

== ENCOUNTER 2017-07-08 10:11 | Day surgery (SDC) | payer MEDICARE ==
[2017-07-08] MEDS ORDERED: Propofol 10 mg/ml Inj (20 ML) ONE (12:05)
[2017-07-08] MEDS ORDERED: Succinylcholine 200 mg/10 ml Inj IV ONE (12:09)
[2017-07-08] MEDS ORDERED: Lactated Ringer's 1,000 ML IV SCH (13:00)
[2017-07-08 13:12] VITALS: RESP 18; TEMP 98.3
[2017-07-08 13:45] VITALS: BP 161/90; PULSE 92; O2SAT 97
== END 2017-07-08 14:38 | disposition home or self-care (01) ==
LOC: SDS 10:11
PROVIDERS: ATTEND Psychiatry & Neurology Addiction Medicine
DX: F33.1 Major depressive disorder, recurrent, moderate (principal)
CPT/HCPCS: 90870; J0330; J2704; J7120 ×2

== ENCOUNTER 2017-07-12 10:21 | Day surgery (SDC) | payer MEDICARE ==
[2017-07-12] MEDS ORDERED: Propofol 10 mg/ml Inj (20 ML) ONE ×2 (12:10→12:11)
[2017-07-12] MEDS ORDERED: Succinylcholine 200 mg/10 ml Inj IV ONE (12:10)
[2017-07-12 13:35] VITALS: RESP 20; TEMP 98
[2017-07-12 13:50] VITALS: BP 122/74; PULSE 88; O2SAT 97
== END 2017-07-12 14:35 | disposition home or self-care (01) ==
LOC: SDS 10:21
PROVIDERS: ATTEND Psychiatry & Neurology Addiction Medicine
DX: F33.1 Major depressive disorder, recurrent, moderate (principal)
CPT/HCPCS: 90870; J0330; J2405; J2704; J3010; J7120

== ENCOUNTER 2017-07-15 10:51 | Day surgery (SDC) | payer MEDICARE ==
[2017-07-15] MEDS ORDERED: Succinylcholine 200 mg/10 ml Inj IV ONE (12:32)
[2017-07-15] MEDS ORDERED: Propofol 10 mg/ml Inj (20 ML) ONE (12:32)
[2017-07-15] MEDS ORDERED: Sodium Chloride 0.9% 1,000 ML IV SCH (14:30)
[2017-07-15 15:03] VITALS: TEMP 98.7
[2017-07-15 15:31] VITALS: BP 155/84; PULSE 90; RESP 18; O2SAT 100
== END 2017-07-15 15:50 | disposition home or self-care (01) ==
LOC: SDS 10:51
PROVIDERS: ATTEND Psychiatry & Neurology Addiction Medicine
DX: F33.1 Major depressive disorder, recurrent, moderate (principal)
CPT/HCPCS: 90870; J0330; J2704; J7040; J7120

== ENCOUNTER 2017-07-21 11:00 | Day surgery (SDC) | payer MEDICARE ==
[2017-07-21 11:40] VITALS: RESP 18
[2017-07-21] MEDS ORDERED: Propofol 10 mg/ml Inj (20 ML) ONE ×3 (12:19→12:21)
[2017-07-21] MEDS ORDERED: Lidocaine 2% Inj (20ml) ONE (12:19)
[2017-07-21] MEDS ORDERED: Succinylcholine 200 mg/10 ml Inj IV ONE (12:23)
[2017-07-21 12:51] VITALS: TEMP 98.4
[2017-07-21 13:30] VITALS: BP 134/86; PULSE 84; O2SAT 96
== END 2017-07-21 14:30 | disposition home or self-care (01) ==
LOC: SDS 11:00
PROVIDERS: ATTEND Psychiatry & Neurology Addiction Medicine
DX: F32.9 Major depressive disorder, single episode, unspecified (principal)

== ENCOUNTER 2017-07-23 12:11 | Day surgery (SDC) | payer MEDICARE ==
[2017-07-23] MEDS ORDERED: Propofol 10 mg/ml Inj (20 ML) ONE (12:44)
[2017-07-23] MEDS ORDERED: Succinylcholine 200 mg/10 ml Inj IV ONE (13:01)
[2017-07-23 13:44] VITALS: RESP 18; TEMP 98.2; O2SAT 98
[2017-07-23 14:16] VITALS: BP 157/79; PULSE 86
== END 2017-07-23 14:40 | disposition home or self-care (01) ==
LOC: SDS 12:11
PROVIDERS: ATTEND Psychiatry & Neurology Addiction Medicine
DX: F32.9 Major depressive disorder, single episode, unspecified (principal)
CPT/HCPCS: 90870; J0330; J1885; J2704; J3010

== ENCOUNTER 2017-07-29 11:17 | Day surgery (SDC) | payer MEDICARE ==
[2017-07-29] MEDS ORDERED: Lactated Ringer's 1,000 ML IV SCH (12:00)
[2017-07-29] MEDS ORDERED: Propofol 10 mg/ml Inj (20 ML) ONE (12:02)
[2017-07-29] MEDS ORDERED: Succinylcholine 200 mg/10 ml Inj IV ONE (12:03)
[2017-07-29 13:06] VITALS: RESP 20; TEMP 98.3; O2SAT 99
[2017-07-29 13:40] VITALS: BP 132/77; PULSE 82
== END 2017-07-29 14:10 | disposition home or self-care (01) ==
LOC: SDS 11:17
PROVIDERS: ATTEND Psychiatry & Neurology Addiction Medicine
DX: F32.9 Major depressive disorder, single episode, unspecified (principal)
CPT/HCPCS: 90870; J0330; J2704; J7120 ×2